=== PATIENT | male | born 1960 | race Caucasian/White ===

== ENCOUNTER → 2020-04-18 07:45 | Outpatient (CLI) | payer OTHER, SELFPAY ==
--- NOTE | ~2020-04-18 | US_ITS ---
EXAMINATION: US right upper quadrant EXAM DATE: 04/18/2020 08:09 INDICATION: Elevated liver enzymes TECHNIQUE: Multiple grayscale and Doppler images of the abdomen right upper quadrant were obtained (b y a technologist who performed the scan) and subsequently reviewed. Comparison is made to prior exami nation from 04/28/2019. FINDINGS: The pancreatic head and body are normal in appearance. The pancreatic tail is not visualized. The l iver has normal echogenicity and contour. There are no focal liver lesions identified. There is no evidence of intrahepatic biliary duct dilation. Portal venous flow was seen in the hepatopedal, nor mal direction and has normal Doppler waveform. No right-sided hydronephrosis. Common bile duct measures 4 mm, which is normal. The gallbladder wall is normal in thickness, with ex pected amount of distention. No sonographic evidence of pericholecystic fluid. There is no cholelit hiases. Technologist performing exam reports patient did not demonstrate sonographic Swanson's sign. Please note that this sign is less reliable in patients who have received pain medication. IMPRESSION: Hepatic steatosis. Reviewed, dictated and finalized at location A. ISTICAL METHODS PROFESSOR IMPRESSION: Hepatic steatosis.
== END ==
PROVIDERS: PCP Emergency Medicine; Visit Provider Emergency Medicine
DX: R74.8 Abnormal levels of other serum enzymes (principal); K76.0 Fatty (change of) liver, not elsewhere classified
CPT/HCPCS: 76705

== ENCOUNTER 2021-06-25 08:24 | Outpatient (CLI) | payer OTHER, SELFPAY ==
--- NOTE | ~2021-06-25 | US_ITS ---
EXAMINATION: US right upper quadrant EXAM DATE: 06/25/2021 08:54 INDICATION: Hepatic steatosis. TECHNIQUE: Multiple grayscale and Doppler images of the abdomen right upper quadrant were obtained (tee y a technologist who performed the scan) and subsequently reviewed. Comparison is made to prior exami nation from 04/18/2020. FINDINGS: The pancreatic head and body are normal in appearance. The pancreatic tail is not visualized. The l iver has normal echogenicity and contour. There are no focal liver lesions identified. There is no evidence of intrahepatic biliary duct dilation. Portal venous flow was seen in the hepatopedal, nor mal direction and has normal Doppler waveform. No right-sided hydronephrosis. Common bile duct measures 4 mm, which is normal. The gallbladder wall is normal in thickness, with ex pected amount of distention. No sonographic evidence of pericholecystic fluid. There is no cholelit hiases. Technologist performing exam reports patient did not demonstrate sonographic Swanson's sign. Please note that this sign is less reliable in patients who have received pain medication. IMPRESSION: 1. Resolution of previously seen hepatic steatosis. Reviewed, dictated and finalized at location G. H USHER
== END 2021-06-25 08:25 | disposition home or self-care (01) ==
LOC: ANHIMG 08:27
PROVIDERS: PCP Emergency Medicine; Visit Provider Family Medicine
DX: K76.0 Fatty (change of) liver, not elsewhere classified (principal)
CPT/HCPCS: 76705

== ENCOUNTER 2021-07-25 15:22 | Outpatient (CLI) | payer OTHER, SELFPAY ==
--- NOTE | ~2021-07-25 | US_ITS ---
EXAMINATION: US thyroid DATE: 07/25/2021 15:59 INDICATION: Elevated thyroid hormone levels TECHNIQUE: Multiple ultrasound images of the thyroid were obtained. COMPARISON: None. FINDINGS: The right thyroid lobe measures 4.8 x 1.9 x 1.5 cm. The left thyroid lobe measures 4.7 x 2.0 x 1.8 c m. Thyroid isthmus measures 2 mm in thickness. 1.1. Hypoechoic nodule which is wider than tall with s mooth margins (TI-RADS 4, moderately suspicious , FNA if >=1.5 cm, annual followup is >=1 cm). Adjace nt 4 mm coarse shadowing calcification along side but not appearing within the nodule. There is blanca l echotexture, echogenicity and vascular flow throughout the thyroid gland. IMPRESSION: 1. 1.1 cm TI RADS 4 left thyroid nodule for which annual follow-up ultrasound would be recommended. Reviewed, dictated and finalized at location A. ER IMPRESSION: 1. 1.1 cm TI RADS 4 left thyroid nodule for which annual follow-up ultrasound w ould be recommended.
== END 2021-07-25 15:23 | disposition home or self-care (01) ==
LOC: ANHIMG 15:25
PROVIDERS: PCP Emergency Medicine; Visit Provider Emergency Medicine
DX: R94.6 Abnormal results of thyroid function studies (principal)
CPT/HCPCS: 76536

== ENCOUNTER 2022-01-21 10:43 | Outpatient (CLI) | payer OTHER, SELFPAY ==
--- NOTE | ~2022-01-21 | XR_ITS ---
EXAMINATION: XR chest 2V 01/21/2022 10:57 INDICATION: Upper respiratory infection. Bronchitis. PROCEDURE: 2 view chest COMPARISON: No prior studies for comparison. FINDINGS: The lungs are clear. The cardiomediastinal silhouette is within normal limits. There are no pleural effusions. There is no pneumothorax suspected. IMPRESSION: 1: NO ACUTE CARDIOPULMONARY DISEASE. Reviewed, dictated and finalized at location B.
== END 2022-01-21 10:44 | disposition home or self-care (01) ==
PROVIDERS: PCP Emergency Medicine; Visit Provider Emergency Medicine
DX: J06.9 Acute upper respiratory infection, unspecified (principal); J40 Bronchitis, not specified as acute or chronic
CPT/HCPCS: 71046

== ENCOUNTER → 2022-04-16 13:44 | Outpatient (CLI) | payer BC, SELFPAY ==
--- NOTE | ~2022-04-16 | XR_ITS ---
EXAMINATION: XR chest 2V DATE: 04/16/2022 14:34 INDICATION: Cough. TECHNIQUE: Frontal and lateral views of the chest were obtained on 3 radiographs. COMPARISON: Chest 2 views 01/21/2022, CT abdomen and pelvis 11/18/2011 FINDINGS: The chest demonstrates clear lungs without pneumonia, pleural effusion, or pneumothorax. Th e heart size is normal. IMPRESSION: 1. No acute cardiopulmonary disease. Reviewed, dictated and finalized at location A. OGY SPECIALIST
== END ==
PROVIDERS: PCP Emergency Medicine; Visit Provider Emergency Medicine
DX: R05.9 Cough, unspecified (principal)
CPT/HCPCS: 71046

== ENCOUNTER 2023-01-20 15:29 | Outpatient (CLI) | payer OTHER, SELFPAY ==
[2023-01-20 15:49] LABS: Basophils Absolute Auto 0.1 K/mm3 (0.0-0.1); Basophils Percent Auto 0.8 % (0.2-1.2); Eosinophils Absolute Auto 0.4 K/mm3 (0-0.3); Eosinophils Percent Auto 4.7 % (0-4.4); Hematocrit 46.4 % (42.0-52.0); Hemoglobin 15.8 g/dL (14.0-18.0); Immature Granulocyte Absolute 0.03 K/mm3 (0.00-0.031); Immature Granulocyte Percent A 0.3 % (0-0.5); Lymphocytes Absolute Auto 1.81 K/mm3 (0.9-3.2); Lymphocytes Percent Auto 20.9 % (18.3-44.2); Mean Corpuscular HGB Conc 34.1 g/dl (32-36); Mean Corpuscular Volume 82.1 fl (80-100); Mean Platelet Volume 9.6 fl (7.4-10.4); Monocytes Absolute Auto 0.6 K/mm3 (0.1-0.6); Monocytes Percent Auto 6.6 % (2.6-8.5); Neutrophils Absolute Auto 5.8 K/mm3 (1.3-6.7); Neutrophils Percent Auto 66.7 % (45.5-73.1); Platelet Count Result 248 k/mm3 (150-375); Red Blood Count 5.65 M/mm3 (4.6-6.20); Red Cell Distribution Width 14.1 % (11.5-14.5); White Blood Count 8.7 K/mm3 (4.5-10.0)
[2023-01-20 16:40] LABS: Iron 111 ug/dL (49-181)
[2023-01-20 16:45] LABS: Alanine Aminotransferase 73 U/L (6-50); Albumin Level 4.4 g/dL (3.5-5.1); Alkaline Phosphatase 67 U/L (38-126); Anion Gap 7 mmol/L (8-16); Aspartate Amino Transferase 50 U/L (17-59); Bilirubin,Total 0.5 mg/dL (0.2-1.3); Blood Urea Nitrogen 13 mg/dL (9-20); Calcium 9.5 mg/dL (8.4-10.2); Carbon Dioxide 29 mmol/L (22-30); Chloride 104 mmol/L (98-107); Estimated Glomerular Filt Rate > 60; Glucose 106 mg/dL (65-110); Potassium 3.8 mmol/L (3.4-5.0); Sodium 140 mmol/L (137-145)
[2023-01-20 16:50] LABS: Percent Iron Saturation 29 % (20-50)
[2023-01-20 17:55] LABS: Folic Acid 13.2 ng/mL (2.76->20); Vitamin B12 > 1000.0 pg/mL (239-931)
== END 2023-01-20 15:30 | disposition home or self-care (01) ==
LOC: ANHLAB 15:34
PROVIDERS: PCP Emergency Medicine; Visit Provider Internal Medicine Hematology & Oncology
DX: D64.9 Anemia, unspecified (principal)
CPT/HCPCS: 36415; 80053; 82607; 82728; 82746; 83540; 83550; 85025

== ENCOUNTER 2023-07-14 10:21 | Outpatient (CLI) | payer OTHER, SELFPAY ==
[2023-07-14 10:37] LABS: Basophils Absolute Auto 0.1 K/mm3 (0.0-0.1); Basophils Percent Auto 0.5 % (0.2-1.2); Eosinophils Absolute Auto 0.5 K/mm3 (0-0.3); Hematocrit 46.6 % (42.0-52.0); Hemoglobin 15.3 g/dL (14.0-18.0); Immature Granulocyte Absolute 0.05 K/mm3 (0.00-0.031); Immature Granulocyte Percent A 0.5 % (0-0.5); Lymphocytes Absolute Auto 2.19 K/mm3 (0.9-3.2); Mean Corpuscular HGB Conc 32.8 g/dl (32-36); Mean Corpuscular Volume 82.2 fl (80-100); Mean Platelet Volume 9.8 fl (7.4-10.4); Monocytes Absolute Auto 0.9 K/mm3 (0.1-0.6); Monocytes Percent Auto 8.7 % (2.6-8.5); Neutrophils Absolute Auto 6.3 K/mm3 (1.3-6.7); Neutrophils Percent Auto 63.3 % (45.5-73.1); Platelet Count Result 241 k/mm3 (150-375); Red Blood Count 5.67 M/mm3 (4.6-6.20); Red Cell Distribution Width 14.2 % (11.5-14.5); White Blood Count 9.9 K/mm3 (4.5-10.0)
[2023-07-14 16:31] LABS: Iron 180 ug/dL (49-181)
[2023-07-14 16:33] LABS: Anion Gap 8 mmol/L (8-16); Blood Urea Nitrogen 12 mg/dL (9-20); Calcium 9.5 mg/dL (8.4-10.2); Carbon Dioxide 28 mmol/L (22-30); Chloride 102 mmol/L (98-107); Estimated Glomerular Filt Rate > 60; Glucose 86 mg/dL (65-110); Potassium 4.2 mmol/L (3.4-5.0); Sodium 138 mmol/L (137-145)
[2023-07-14 16:45] LABS: Percent Iron Saturation 56 % (20-50)
[2023-07-14 17:39] LABS: Folic Acid 10.2 ng/mL (2.76->20)
== END 2023-07-14 10:22 | disposition home or self-care (01) ==
LOC: ANHLAB 10:23
PROVIDERS: PCP Emergency Medicine; Visit Provider Internal Medicine Hematology & Oncology
DX: D64.9 Anemia, unspecified (principal)
CPT/HCPCS: 36415; 80048; 82607; 82728; 82746; 83540; 83550; 85025

== ENCOUNTER 2023-07-23 11:12 | Outpatient (CLI) | payer OTHER, SELFPAY ==
--- NOTE | ~2023-07-23 | XR_ITS ---
Clinical Indication: Cough PA and lateral views of the chest: Comparison: 04/16/2022 Findings: The lungs are clear, without evidence of focal consolidation or pleural effusion. Cardiome diastinal silhouette is within normal limits. Bones and soft tissues are unremarkable. Impression: Normal chest. Reviewed, dictated and finalized at [facility]. RANCE DIVER Impression: Normal chest.
== END 2023-07-23 11:13 | disposition home or self-care (01) ==
PROVIDERS: PCP Emergency Medicine; Visit Provider Emergency Medicine
DX: R05.9 Cough, unspecified (principal)
CPT/HCPCS: 71046

== ENCOUNTER 2023-10-14 09:33 | Outpatient (CLI) | payer OTHER, SELFPAY ==
--- NOTE | ~2023-10-14 | US_ITS ---
Limited Abdominal Sonogram: Real-time sonographic imaging of the right upper quadrant was performed. Clinical History: Abnormal liver enzymes Findings: The liver appears echogenic, with no evidence of mass lesion or bile duct dilatation. Main portal vein demonstrates normal direction of flow. The gallbladder is well distended, and appears no rmal with no evidence of gallstone or wall thickening. The common bile duct measures 3 mm. The visua lized pancreas, aorta, and IVC are unremarkable. Impression: Diffuse fatty infiltration of liver. Reviewed, dictated and finalized at location M. Impression: Diffuse fatty infiltration of liver.
== END 2023-10-14 09:34 | disposition home or self-care (01) ==
LOC: ANHIMG 09:34
PROVIDERS: PCP Emergency Medicine; Visit Provider Emergency Medicine
DX: K76.0 Fatty (change of) liver, not elsewhere classified (principal)
CPT/HCPCS: 76705

== ENCOUNTER 2024-08-02 14:40 | Outpatient (CLI) | payer OTHER, SELFPAY ==
[2024-08-02 14:58] LABS: Basophils Absolute Auto 0.1 K/mm3 (0.0-0.1); Basophils Percent Auto 1.2 % (0.2-1.2); Eosinophils Absolute Auto 0.7 K/mm3 (0-0.3); Eosinophils Percent Auto 6.7 % (0-4.4); Hematocrit 46.7 % (42.0-52.0); Hemoglobin 15.7 g/dL (14.0-18.0); Immature Granulocyte Absolute 0.03 K/mm3 (0.00-0.031); Immature Granulocyte Percent A 0.3 % (0-0.5); Lymphocytes Absolute Auto 2.27 K/mm3 (0.9-3.2); Lymphocytes Percent Auto 21.5 % (18.3-44.2); Mean Corpuscular HGB Conc 33.6 g/dl (32-36); Mean Corpuscular Hemoglobin 27.3 pg (26-34); Mean Corpuscular Volume 81.1 fl (80-100); Mean Platelet Volume 9.8 fl (7.4-10.4); Monocytes Absolute Auto 0.8 K/mm3 (0.1-0.6); Neutrophils Absolute Auto 6.6 K/mm3 (1.3-6.7); Neutrophils Percent Auto 62.3 % (45.5-73.1); Platelet Count Result 267 k/mm3 (150-375); Red Blood Count 5.76 M/mm3 (4.6-6.20); Red Cell Distribution Width 14.6 % (11.5-14.5); White Blood Count 10.6 K/mm3 (4.5-10.0)
[2024-08-02 15:49] LABS: Iron 94 ug/dL (49-181); Percent Iron Saturation 28 % (20-50)
[2024-08-02 16:38] LABS: Folic Acid 5.5 ng/mL (2.76->20)
--- OUTSIDE RECORDS SUMMARY | 2024-08-02 17:04 | XMS_ITS | Clinical Summary ---
Author Organization [facility] Address [address] [place] [address] Care Team Providers Care Agency Manager Name Role Phone Robert Gray MD Primary Care Provider [phone] Source Comments [facility],non-[facility] Affiliates and Associated Physician Practices is amultiple site organization consisting of ambulatory clinics and hospital sitesin [place], [place], [place] and [place]. This disclosure is being madepursuant to the Care Everywhere program and may not contain all information available regarding this patient. Last updated [email or web address] [email or web address] Allergies Active Allergy Reactions Criticality Noted Date Comments Hmg-Coa-R Inhibitors Other 10/30/2021 Semaglutide Other High 12/13/2021 Medications * Be aware that medications may not be up to date on this document. Alwaysverify current medications with the patient. Medication Sig Dispensed Refills Start Date End Date Status fluticasone propionate (FLONASE) 50 MCG/ACT nasal spray [place] 2 (two) sprays into each nostril once daily 10/26/2021 Active atenolol (TENORMIN) 50 MG tablet Take 1 (one) tablet by mouth once daily 09/12/2021 Active fexofenadine (RAFAEL) 180 MG tablet every 24 hours Active omeprazole EC (PRILOSEC OTC) 20 MG tablet 12/20/2020 Active triamcinolone acetonide (KENALOG) 0.5 % cream triamcinolone acetonide 0.5 % topical cream Active aspirin EC (Ecotrin) 81 MG tablet Take 1 (one) tablet by mouth once daily Active Magnesium 400 MG Active Jardiance 10 MG tablet Take 1 (one) tablet by mouth once daily 12/18/2021 Active evolocumab (Repatha SureClick) 140 MG/ML auto-injector 09/26/2022 Activ e icosapent ethyl (Vascepa) 1 g capsule Vascepa 1 gram capsule 12/18/2022 Active ferrous sulfate 325 (65 FE) MG tablet Take 1 (one) tablet by mouth once daily Active Active Problems Problem Noted Date Diagnosed Date Pulmonary hypertension 12/18/2022 Iron deficiency 12/18/2022 01/28/2023 Rheumatic tricuspid insufficiency 02/15/2022 01/28/2023 Thyroid nodule 10/30/2021 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 Impotence 10/30/2021 Allergic rhinitis 10/30/2021 Chronic obstructive lung disease 10/30/2021 Eczema 10/30/2021 Essential hypertension 10/30/2021 Elevated LFTs 12/15/2019 Aortic atherosclerosis 10/21/2017 Arteriosclerosis of coronary artery 10/21/2017 Overview (10/30/2021): mild carotid plqe Hemorrhoids 05/05/2017 B12 deficiency 12/08/2015 Sleep apnea, unspecified 12/07/2015 Vitamin D deficiency 11/25/2013 Hyperlipidemia 08/26/2013 Obesity 08/26/2013 Other ill-defined heart diseases 08/26/2013 Immunizations Name Administration Dates Next Due COVID BRITTANY PRIMARY 18+YR 08/11/2021 Covid Pfizer primary monoval ent 12+ yr 0.3mL Purple cap 10/05/2021,04/09/2021 Family History Medical History Relation Name Comments Thyroid Disease Cousin THYROID SURG LALY Thyroid Disease Maternal Aunt POSSIBLE TH YROID CANCER Relation Name Status Comments Cousin Alive Maternal Aunt Alive Social History Tobacco Use Types Packs/Day Years Used Date Smoking Tobacco: Never Smokeless Tobacco: Never Tobacco Cessation:Counseling Given: No Alcohol Use Standard Drinks/Week Comments Yes 0 (1 standard drink = 0.6 oz pur e alcohol) 6pcks off and on for 40 years Sex and Gender Information Value Date Recorded Sex Assigned at Not on file Gender Identity Not on file Sexual Orientation Not on file Last Filed Vital Signs Vital Sign Reading Time Taken Comments Blood Pressure 132/78 01/28/2023 11:42 AM CDT Pulse 62 01/28/2023 11:42 AM CDT Temperature 35.1 C (95.1 F) 01/29/2022 11:05 AM CDT Respiratory Rate 18 01/28/2023 11:4 2 AM CDT Oxygen Saturation 94% 01/28/2023 11: 42 AM CDT Inhaled Oxygen Concentration - - Weight 120.2 kg (264 lb 14.4 oz) 2022 11:42 AM CDT Height 185.4 cm (6' 1 ) 01/28/2023 11:4 2 AM CDT Body Mass Index 34.95 01/28/2023 11:42 AM CDT Plan of Treatment Health Maintenance Due Date Last Done Comments COLOGUARD (AGES 45-75) - COL ON CA SCREENING 1961 COLON MONITORING 1961 COLONOSCOPY - COLON CA SCREENING 1961 CT COLONOGRAPHY - COLON CA SCREENING 1961 Colorectal Cancer Screening 1961 FIT - COLON CA SCREENING 1961 FLEX SIG - COLON CA SCREENING 1961 HIV SCREENING 1976 HEPATITIS C SCREENING 04/03/1979 DTAP/TDAP/TD VACCINES (1 - Tdap) 1980 PNEUMOCOCCAL VACCINE 50+ (1 of 2 - PCV) 1980 PNEUMOCOCCAL VACCINE (1 of 2 - PCV) 1980 ZOSTER VACCINE (1 of 2) 2011 Respiratory Syncytial Virus (RSV) Vaccine Pt: or over 60 yrs (1 - Risk 60-74 years 1-dose series) 2021 SCREENING FOR DIABETES 10/30/2021 COVID-19 VACCINE (4 - 2023-2 5 season) 2024 10/05/2021, 08/11/2021, 04/09/2021 INFLUENZA VACCINE (#1) 2024 DEPRESSION SCREENING 06/09/2024 HEPATITIS B VACCINE Aged Out No longe r eligible based on patient's age to complete this topic HIB VACCINE Aged Out No longer eligi ble based on patient's age to complete this topic HPV VACCINE Aged Out No longer eligi ble based on patient's age to complete this topic MENINGOCOCCAL (Group B) VACCINE Aged Out No longer eligible b ased on patient's age to complete this topic MENINGOCOCCAL VACCINE Aged Out No maggy crispin eligible based on patient's age to complete this topic Care Teams Agency Manager Relationship Specialty Start Date End Date Robert Gray MD [address] [place] [id number] PCP - General 08/08/21
--- OUTSIDE RECORDS SUMMARY | 2024-08-02 17:04 | XMS_ITS | Encounter Summary ---
Author Organization [facility] [employer] [facility] Address [address] [place] [address] Care Team Providers Care Foreign Clerk Name Role Phone Robert Gray MD Primary Care Provider [phone] Encounter Details Date Type Department Care Team (Late Contact Info) Description 08/02/2024 Orders Only [facility] Oncology and Hematology [address] [place] [address] Natanael Ennis MD [facility] [address] [place] [phone] Chronic anemia (Primary Dx) Social History Tobacco Use Types Packs/Day Years Used Date Smoking Tobacco: Former Cigarettes Alcohol Use Standard Drinks/Week Comments Yes 0 (1 standard drink = 0.6 oz pur e alcohol) rare Sex and Gender Information Value Date Recorded Sex Assigned at Not on file Legal Sex Male 10:54 AM CDT Gender Identity Not on file Sexual Orientation Not on file documented as of this encounter Plan of Treatment Upcoming Encounters Date Type Department Care Team (Late Contact Info) Description 08/03/2024 3:30 PM IMPORT/EXPORT ADMINISTRATOR Office Visit [facility] Oncology and Hematology - [address] [place] [address] Natanael Ennis MD [facility] [address] [address] [place] [phone] Scheduled Orders Name Type Priority Associated Diagnoses Orde r Schedule CBC WITH DIFFERENTIAL Lab Routine Chronic anemia Expected: 08/02/2024, Expires: 08/02/2025 IRON, TIBC, AND PERCENT SATURATION Lab Routine Chronic anemia Expected: 08/02/2024, Expires: 08/02/2025 FERRITIN Lab Routine Chronic anemia Expected: 08/02/2024, Expires: 08/02/2025 VITAMIN B12 AND FOLATE Lab Routine Chronic anemia Expected: 08/02/2024, Expires: 08/02/2025 documented as of this encounter Visit Diagnoses Diagnosis Chronic anemia- Primary Anemia, unspecified documented in this encounter Care Teams Foreign Clerk Relationship Specialty Start Date End Date Robert Gray MD [address] [place] [phone] PCP - General Family Practice 07/31/23 documented as of this encounter
--- OUTSIDE RECORDS SUMMARY | 2024-08-02 17:04 | XMS_ITS | Clinical Summary ---
Author Organization [facility] Address [address] [place] [address] Care Team Providers Care Cutter Operator Brick Name Role Phone Robert Gray MD Primary Care Provider [phone] Allergies Active Allergy Reactions Criticality Noted Date Comments Semaglutide (Weight Loss) Other (See Comments) 01/20/2023 Sulfur taste Dozrxfj-Duj-Uid Reductase Inhibitors Muscle Pain Low 01/20/2023 Medications atenoloL (TENORMIN) 50 mg tablet Take 50 mg by mouth daily. 2 Active fexofenadine (RAFAEL) 180 mg tablet Take 180 mg by mouth daily. Active omeprazole magnesium (PriLOSEC) 20 mg Tablet, Delayed Release (E.C.) Take 20 mg by mouth. 1 Active fluticasone propionate (FLONASE) 50 mcg/spray Lindsay, Suspension nasal inhaler Administer 2 Sprays in each nostril daily. 2 Active evolocumab (Repatha SureClick) 140 mg/mL Pen Injector Apply to affected area one time only. 3 Active cyanocobalamin (Vitamin B-12) 5,000 mcg Tablet, Sublingual Place 2,500 mcg under tongue daily. Active empagliflozin (Jardiance) 10 mg tablet Take 10 mg by mouth daily in the morning. Active magnesium oxide (MAG-OX) 400 mg (241.3 mg magnesium) tablet Take 400 mg by mouth daily. Active ferrous sulfate 325 mg (65 mg iron) tablet Take 325 mg by mouth daily. Active aspirin (ECOTRIN EC) 81 mg Tablet, Delayed Release (E.C.) Take 81 mg by mouth daily. Active atenoloL (TENORMIN) 50 mg tablet Take 50 mg by mouth daily. Active amLODIPine (NORVASC) 5 mg tablet Take 5 mg by mouth daily. Active Active Problems No known active problems Encounters Date Type Department Care Team Description 08/02/2024 Orders Only [facility] Oncology and Hematology [address] [place] [address] Natanael Ennis MD Chronic anemia (Primary Dx) from Last 3 Months Family History Relation Name Status Comments Brother Alive Daughter Alive Father Mother Alive Sister Alive Son Alive Social History Tobacco Use Types Packs/Day Years Used Date Smoking Tobacco: Former Cigarettes Tobacco Cessation:Counseling Given: Not Answered Alcohol Use Standard Drinks/Week Comments Yes 0 (1 standard drink = 0.6 oz pur e alcohol) rare Sex and Gender Information Value Date Recorded Sex Assigned at Not on file Legal Sex Male 10:54 AM CDT Gender Identity Not on file Sexual Orientation Not on file Last Filed Vital Signs Vital Sign Reading Time Taken Comments Blood Pressure 136/88 07/31/2023 11:19 AM PROJECT ASST Pulse 62 07/31/2023 11:17 AM PROJECT ASST Temperature 36.1 C (96.9 F) 07/31/2023 11:17 AM PROJECT ASST Respiratory Rate 16 07/31/2023 11:17 AM PROJECT ASST Oxygen Saturation 96% 07/31/2023 11:17 AM PROJECT ASST Inhaled Oxygen Concentration - - Weight 123.4 kg (272 lb) 07/31/2023 11:17 AM PROJECT ASST Height 185.4 cm (6' 1 ) 01/20/2023 2:56 PM CDT Body Mass Index 35.89 01/20/2023 2:56 PM CDT Plan of Treatment Upcoming Encounters Date Type Department Care Team (Late st Contact Info) Description 08/03/2024 3:30 PM PROJECT ASST Office Visit [facility] Oncology and Hematology [address] [place] [address] Natanael Ennis MD [address] [facility] [address] [place] [address] Health Maintenance Due Date Last Done Comments DTAP/TDAP/TD VACCINES (1 - Tdap) 1980 COLORECTAL SCREENING 2006 Colorectal Cancer Screening 2006 FIT-DNA Q 3 years 2006 FIT/FOBT Q 1 year 2006 Flex Sig/CT Colonography Q 5 years 2006 ZOSTER VACCINE (1 of 2) 2011 RSV VACCINE (60+ or ) (1 - Risk 60-74 years 1-dose series) 2021 INFLUENZA VACCINE (#1) 2024 Preventative Visit- Commercial 06/09/2024 Insurance zhiwo OPEN ACCESS HMO [facility] [id number] Care Teams Cutter Operator Brick Relationship Specialty Start Date End Date Robert Gray MD [address] [place] [phone] PCP - General Family Practice 07/31/23
--- OUTSIDE RECORDS SUMMARY | 2024-08-02 17:04 | XMS_ITS | CONTINUITY OF CARE DOCUMENT ---
Author Name melva frye Address Unknown Organization [facility] Address [address] [place] [address] Phone [phone] Care Team Providers Care Nurse Unit Manager Name Role Phone Donovan Stafford MD Unavailable [phone] MOSES STEWART MD Unavailable [phone] MOSES STEWART MD Unavailable [phone] PROBLEMS Condition Status Date Provider Notes Tricuspid regurgitation, mild active Donovan Stafford MD PREDIABETES active Donovan Stafford MD Granulomatous lung disease active Donovan hammer MD Aortic atherosclerosis active Donovan Stafford MD COPD;NEG CXR 14 active Donovan Stafford MD HTN ESSENTIAL;neg duplex active Donovan solis MD rpm not covered Hyperlipidemia;NEG CRP and lpa active Donovan Stafford MD Tobacco use, quit active Donovan Stafford MD OBESITY; active Donovan Stafford MD FAMILY HISTORY OF HEART DISEASE active Donovan Stafford MD r/o ISCHEMIA;NEG NUC 14, WMA 14, not seen 15, neg routine stress 15, completed - Donovan Stafford MD VITAMIN D DEFICIENCY; completed - Donovan Stafford MD Diastolic CHF active Donovan Stafford MD Screening active Donovan Stafford MD \ SLEEP APNEA;uars active Donovan Stafford MD B12 deficiency active Donovan Stafford MD CAD active Donovan Stafford MD mild car otid plqe Elevated LFT's active Donovan Stafford MD Exposure to SARS-associated coronavirus;neg igg and had vaccine active Lola Mathews NP Thyroid nodule active Donovan Stafford MD neg tsh Bradycardia;due to rx active Donovan Stafford MD IRON DEFICIENCY active Donovan Stafford MD Hypertriglyceridemia active Donovan Gaming Pulmonary hypertension completed 2 - Donovan Stafford MD Aortic aneurysm active Donovan Stafford MD abd doinal ENCOUNTERS Date Type Provider Location Encounter Diag nosis 9 - 9 In-person encounter Office Visit Donovan Stafford MD [facility] Pulmonary hypertensionAortic aneurysm 6 - 6 In-person encounter Office Visit Donovan Stafford MD [place] [facility] COPD;NEG CXR 14HTN ESSENTIAL;neg duplexScreening 5 - 5 In-person encounter Office Visit Hua Yi MD [place] [facility] 2 - 2 In-person encounter Office Visit Donovan Stafford MD [place] [facility] HTN ESSENTIAL;neg duplexVITAMIN D DEFICIENCY;Diastolic CHFBradycardia;due to rxIRON DEFICIENCYHypertriglyceridemia 7 - 7 In-person encounter Office Visit Donovan Stafford MD [facility] B12 deficiencyThyroid nodule 4 - 4 In-person encounter Office Visit Donovan Stafford MD [place] [facility] Exposure to SARS-associated coronavirus;neg igg and had vaccine 8 - 8 In-person encounter Office Visit Donovan Stafford MD [place] [facility] Elevated LFT'sExposure to SARS-associated coronavirus;neg igg and had vaccine 0 - 0 In-person encounter Office Visit Donovan Stafford MD [place] [facility] [facility] 1 - 1 In-person encounter Office Visit Donovan Stafford MD [place] [facility] CAD 5 - 5 In-person encounter Office Visit Donovan Stafford MD [place] [facility] 5 - 5 In-person encounter Office Visit Donovan Stafford MD [place] [facility] COPD;NEG CXR 14Tobacco use, quitScreening 6 - 6 In-person encounter Office Visit Donovan Stafford MD [place] [facility] Hyperlipidemia;NEG CRP and lpaOBESITY;SLEEP APNEA;uars 0 - 0 In-person encounter Office Visit Donovan Stafford MD [place] [facility] HTN ESSENTIAL;neg duplexr/o ISCHEMIA;NEG NUC 14, WMA 14, not seen 15, neg routine stress 15,Diastolic CHFScreeningSLEEP APNEA;uars 8 - 8 In-person encounter Office Visit Donovan Stafford MD [place] [facility] HTN ESSENTIAL;neg duplexOBESITY;VITAMIN D DEFICIENCY;Diastolic CHF 9 - 9 In-person encounter Office Visit Donovan Stafford MD [place] [facility] Hyperlipidemia;NEG CRP and lpaOBESITY;r/o ISCHEMIA;NEG NUC 14, WMA 14, not seen 15, neg routine stress 15,VITAMIN D DEFICIENCY; 0 - 0 In-person encounter Office Visit Donovan Stafford MD [place] [facility] COPD;NEG CXR 14HTN ESSENTIAL;neg duplexHyperlipidemia;NEG CRP and lpaTobacco use, quitOBESITY;FAMILY HISTORY OF HEART DISEASEr/o ISCHEMIA;NEG NUC 14, WMA 14, not seen 15, neg routine stress 15, VITAL SIGNS Date Observation Value Provider Body Mass Index (Ratio) 32.06 kg/m2 Cleo Stafford MD blood pressure, diastolic 85 mm[Hg] Ulises Fisher blood pressure, systolic 127 mm[Hg] Ilana Fisher pulse rate 76 /min Angelita fajardo oxygen saturation, oximetry 97 % Angelita Fisher blood pressure, cuff size regular Br cindy Fisher weight E&M 243 [lb_av] Angelita Nicole s height E&M 73 [in_i] Angelita fajardo Body Mass Index (Ratio) 36.15 kg/m2 Cleo Stafford MD blood pressure, diastolic -1 mm[Hg] Li nkLogic blood pressure, systolic 123 mm[Hg] Shannan kLogic blood pressure, diastolic 71 mm[Hg] Ja rret blood pressure, systolic 123 mm[Hg] Jar ret pulse rate 65 /min Jimenez y blood pressure, cuff size regular Ja rret oxygen saturation, oximetry 97 % Jimenez respiratory rate E&M 16 /min Jimenez weight E&M 274 [lb_av] Jimenez y height E&M 73 [in_i] Jimenez y blood pressure, saleem tolic, second observation 78 mm[Hg] Brenna Knight blood pressure, syst olic, second observation 126 mm[Hg] Brenna Chatsworth blood pressure, diastolic, baseline 88 mm [Hg] Brenna Chatsworth blood pressure, systolic, baseline 138 mm [Hg] Brenna Chatsworth height E&M 73 [in_i] Brenna Knight height in centimeters E&M 185.42 cm Fa luz maria Knight Body Mass Index (Ratio) 35.75 kg/m2 Barrie Yi MD blood pressure, cuff size regular Ja rret blood pressure, diastolic 86 mm[Hg] Ja rret blood pressure, systolic 150 mm[Hg] Jar ret pulse rate 77 /min Jimenez respiratory rate E&M 12 /min Jimenez oxygen saturation, oximetry 94 % weight E&M 271 [lb_av] Jimenez height E&M 73 [in_i] Jimenez y Body Mass Index (Ratio) 34.83 kg/m2 Cleo Stafford MD blood pressure, diastolic 79 mm[Hg] [employer] blood pressure, systolic 134 mm[Hg] Shannan blood pressure, cuff size regular Ja blood pressure, diastolic 79 mm[Hg] Ja [facility] blood pressure, systolic 134 mm[Hg] [facility] oxygen saturation, oximetry 97 % Jimenez respiratory rate E&M 12 /min Jimenez pulse rate 70 /min Jimenez weight E&M 264 [lb_av] Jimenez y height E&M 73 [in_i] Jimenez y Body Mass Index (Ratio) 34.11 kg/m2 Cleo Stafford MD blood pressure, diastolic 94 mm[Hg] Li nkLogorquidea blood pressure, systolic 138 mm[Hg] Shannan ogic blood pressure, cuff size large Ta jem Van blood pressure, diastolic 94 mm[Hg] Ta jem Van blood pressure, systolic 138 mm[Hg] Mallory allyssa Van oxygen saturation, oximetry 96 % Silva Van respiratory rate E&M 16 /min Silva Van pulse rate 66 /min Silva Van weight E&M 258.6 [lb_av] Silva Van height E&M 73 [in_i] [facility] Body Mass Index (Ratio) 32.72 kg/m2 Cleo Stafford MD blood pressure, diastolic 90 mm[Hg] Ma ha O'Blas blood pressure, systolic 136 mm[Hg] [facility] O'Blas oxygen saturation, oximetry 97 % Siria O'Blas respiratory rate E&M 16 /min Siria O'Blas pulse rate 70 /min Siria O'Blas blood pressure, resting Yes [facility] O'Blas weight E&M 248 [lb_av] [facility] O'Blas height E&M 73 [in_i] Siria O'Blas Body Mass Index (Ratio) 33.38 kg/m2 Cleo Stafford MD blood pressure, diastolic 81 mm[Hg] To nsha Piña blood pressure, systolic 143 mm[Hg] Ton sha Piña oxygen saturation, oximetry 97 % Tonsha Piña respiratory rate E&M 16 /min Tonsha Piña pulse rate 68 /min Tonsha Piña temperature site temporal Tonsha Piña temperature E&M 95.6 [degF] Tonsha Piña weight E&M 253 [lb_av] Tonsha Piña height E&M 73 [in_i] Tonsha Piña Body Mass Index (Ratio) 32.98 kg/m2 Cleo Stafford MD blood pressure, cuff size regular Cy charlotte Carrera blood pressure, diastolic 70 mm[Hg] Cy charlotte Carrera blood pressure, systolic 120 mm[Hg] Elida briseyda Carrera oxygen saturation, oximetry 98 % Elvia Carrera respiratory rate E&M 16 /min Elvia Carrera pulse rate 66 /min Elvia mckeon weight E&M 250 [lb_av] Elvia Lares l height E&M 73 [in_i] Elvia Lares l Body Mass Index (Ratio) 34.56 kg/m2 Cleo Stafford MD blood pressure, diastolic 79 mm[Hg] Karuna Talamantes blood pressure, systolic 130 mm[Hg] Isabelle Talamantes oxygen saturation, oximetry 97 % Wily Talamantes respiratory rate E&M 18 /min Diogo Talamantes pulse rate 62 /min Wily Madison nson weight E&M 262.0 [lb_av] Wily frankon height E&M 73 [in_i] Wily Madison ria Body Mass Index (Ratio) 34.43 kg/m2 Cleo Stafford MD blood pressure, diastolic 82 mm[Hg] Karuna Talamantes blood pressure, systolic 139 mm[Hg] Isabelle Talamantes oxygen saturation, oximetry 98 % Wily Talamantes respiratory rate E&M 18 /min Diogo Talamantes pulse rate 68 /min Wily mauor weight E&M 261.0 [lb_av] Wily shrestha height E&M 73 [in_i] Wily vasques Body Mass Index (Ratio) 34.69 kg/m2 Cleo Stafford MD oxygen saturation, oximetry 96 % Sandra Agrawal respiratory rate E&M 16 /min Sandra Nghia pulse rate 69 /min Sandra Paxinos blood pressure, cuff size regular Kr isty Nghia blood pressure, diastolic 74 mm[Hg] Doni isty Nghia blood pressure, systolic 118 mm[Hg] Norma Agrawal weight E&M 263 [lb_av] Sandra Nghia height E&M 73 [in_i] Sandra Agrawal Body Mass Index (Ratio) 32.19 kg/m2 Cleo Stafford MD blood pressure, resting Yes Carmen Talamantes blood pressure, diastolic 79 mm[Hg] Karuna Talamantes blood pressure, systolic 120 mm[Hg] Isabelle Talamantes oxygen saturation, oximetry 97 % Wily Talamantes respiratory rate E&M 18 /min Diogo Talamantes pulse rate 61 /min Wily mauro weight E&M 244 [lb_av] Wily mauro height E&M 73 [in_i] Wily mauro blood pressure, diastolic 92 mm[Hg] Ke isidroi Eri blood pressure, systolic 122 mm[Hg] Ker ri Eri pulse rate 65 /min Birgit Kapil er oxygen saturation, oximetry 98 % Birgit Eri respiratory rate E&M 16 /min Birgit Jose myers Body Mass Index (Ratio) 32.32 kg/m2 Benavides i Eri weight E&M 245 [lb_av] Birgit Kapil lder blood pressure, diastolic 80 mm[Hg] Be tsy Hernandez blood pressure, systolic 132 mm[Hg] Bet sy Hernandez Body Mass Index (Ratio) 30.47 kg/m2 Anea daksha Albert blood pressure, diastolic 60 mm[Hg] An eatris Brown blood pressure, systolic 90 mm[Hg] Ane atris Brown pulse rate 62 /min Aneatris Brown oxygen saturation, oximetry 96 % Aneatris Brown respiratory rate E&M 17 /min Aneatri s Brown weight E&M 231 [lb_av] Aneatrjordan Brown blood pressure, diastolic 86 mm[Hg] Be love Hernandez blood pressure, systolic 130 mm[Hg] Bet janis Hernandez blood pressure, diastolic, left arm 79 mm [Hg] Reza Headley KILLIAN blood pressure, systolic, left arm 126 mm [Hg] Reza Headley KILLIAN blood pressure, diastolic, right arm 82 m m[Hg] Reza Headley KILLIAN blood pressure, systolic, right arm 124 m m[Hg] Reza Headley KILLIAN blood pressure, diastolic 79 mm[Hg] Christopher barker Headley KILLIAN blood pressure, systolic 126 mm[Hg] Reza Headley KILLIAN pulse rate 60 /min Reza Headley KILLIAN oxygen saturation, oximetry 98 % Reza Headley KILLIAN respiratory rate E&M 18 /min Reza delgado RN Body Mass Index (Ratio) 33.10 kg/m2 Reza Headley KILLIAN weight E&M 250 [lb_av] Reza Headley KILLIAN blood pressure, diastolic 79 mm[Hg] Christopher mj Headley KILLIAN blood pressure, systolic 129 mm[Hg] Reza Headley KILLIAN pulse rate 66 /min Reza Headley KILLIAN oxygen saturation, oximetry 98 % Reza Headley respiratory rate E&M 16 /min Reza Molina [facility] RN Body Mass Index (Ratio) 34.82 kg/m2 Reza Headley KILLIAN weight E&M 263 [lb_av] Reza Headley KILLIAN height E&M 73 [in_i] Reza Headley KILLIAN ALLERGIES Allergy Name Onset Date Reaction Criticality Status OZEMPIC (0.25 OR 0.5 MG/DOSE) High C riticality active PRAVASTATIN SODIUM muslce aches Low Criticality active ZOCOR 5 mg muslce Low Criticality active RESULTS Date Observation Value Provider Reference Range Interpretation Location 01/09 thyroid stimulating hormone, serum 2.56 u[IU]/mL Link[facility] 0.40-4.50 Normal [place] [address] Pavithra [place] [id number] [facility] Vo 01/09 thyroxine, serum, free 1.0 ng/dL [facility] 0.8-1.8 Normal [place] [address] Pavithra MOSER [id number] [employer] [email or web address] Vo 01/09 triiodothyronine (T3), serum 128 ng/dL [facility] 76-181 Normal [place] [address] Pavith[place] [id number] [facility] 12/25 C-reactive protein, by highly sensitive test 1.9 mg/L [facility] Normal 12/25 calcium, serum 9.7 mg/dL [facility] 8.6-10.3 Normal 12/25 carbon dioxide, venous blood 30 mmol/L [facility] 20-32 Normal 12/25 chloride, serum 104 mmol/L [facility] 98-110 Normal 12/25 potassium, serum 4.6 mmol/L [facility] 3.5-5.3 Normal 12/25 sodium, serum 135 mmol/L [facility] 135-146 Normal 12/25 urea nitrogen/creatinin e ratio, serum NOT APPLICABLE (calc) [facility] 6-22 12/25 creatinine, serum 1.11 mg/dL [facility] 0.70-1.35 Normal 12/25 urea nitrogen, blood 17 mg/dL [facility] 7-25 Normal 12/25 blood glucose, random 103 mg/dL [facility] 65-99 High 12/25 NT-pro BNP <36 [facility] <125 Normal 01/10 cholesterol, non-HDL, total 51 MG/DL (CALC) [facility]ic <130 Normal 01/10 cholesterol/HDL ratio, serum, percent 2.5 (calc) LinkLogic <5.0 Normal 01/10 LDL cholesterol, serum 28 MG/DL (CALC) [facility]Logic Normal 01/10 triglyceride, serum, fasting 149 mg/dL [facility] <150 Normal 01/10 HDL cholesterol, serum 34 mg/dL Link[facility] > OR = 40 Low 01/10 cholesterol, serum 85 mg/dL [facility] <200 Normal 12/27 hepatitis B core IgG, serum Negative [facility] Negative 12/27 HBsAg - Confirmation Negative [facility] Negative 12/27 hepatitis A antibody, IgM Negative [facility] Negative 12/27 alanine aminotransferase (SGPT), serum 37 1/L [facility] 0-44 12/27 aspartate aminotransferase (SGOT), serum 30 1/L [facility] 0-40 12/27 alkaline phosphatase, serum 80 1/L [facility] 39-117 12/27 bilirubin, serum, total 0.4 mg/dL [facility] 0.0-1.2 12/27 albumin/globulin ratio, serum 1.8 [facility] 1.2-2.2 12/27 globulin, serum 2.3 [facility] 1.5-4.5 12/27 albumin, serum 4.2 g/dL [facility] 3.8-4.9 12/27 protein, total, serum 6.5 g/dL [facility] 6.0-8.5 12/27 calcium, serum 9.3 mg/dL [facility] 8.7-10.2 12/27 carbon dioxide, venous blood 25 mmol/L [facility] 20-29 12/27 chloride, serum 105 mmol/L [facility] 96-106 12/27 potassium, serum 4.3 mmol/L [facility] 3.5-5.2 12/27 sodium, serum 141 mmol/L [facility] 352-864 8624/0 7/21 urea nitrogen/creatinin e ratio, serum 11 [facility] 9-20 12/27 eGFR if 89 mL/min/{1.7 3_m2} [facility] >59 12/27 eGFR if not 77 mL/min/{1.7 3_m2} [facility] >59 12/27 creatinine, serum 1.06 mg/dL [facility] 0.76-1.27 12/27 urea nitrogen, blood 12 mg/dL [facility] 6-24 12/27 blood glucose, random 94 mg[facility] 12/07 vitamin b12, serum 389.8 pg/mL LinkLog 211.0 - 946.0 12/07 pro brain natriuretic peptide 24.2 pg/mL LinkLog 0.0 - 125.0 08/26 hemoglobin A1C, blood, as % of total hemoglobin 5.5 % LinkLog Normal 08/26 international normalized ratio (INR) 0.96 RATIO [facility] 0.81-1.21 Normal 08/26 prothrombin time (patient) 13.2 s LinkLog 11.5-15.5 Normal 08/26 activated partial thromboplastin time (aPTT) 24.7 s LinkLog Normal 08/26 basophils, absolute, manual 0.06 K/UL [facility] 0.0-0.1 Normal 08/26 basophils as percent of blood leukocytes 0.9 % [facility] 0.3-0.9 Normal 08/26 eosinophils, absolute, manual 0.34 K/UL [facility] 0.1-0.5 Normal 08/26 eosinophils as percent of blood leukocytes 5.0 % [facility] 1.1-7.6 Normal 08/26 monocyte count, blood 0.48 10*3/mm3 [facility] 0.2-0.7 Normal 08/26 monocytes as percent of blood leukocytes 7.2 % [facility] 4.2-11.2 Normal 08/26 lymphocytes as percent of blood leukocytes 1.66 K/UL [facility] 0.6-3.4 Normal 08/26 lymphocytes, absolute 24.8 % [facility] 19.8-46.2 Normal 08/26 neutrophil count, absolute 4.17 K/uL [facility] 1.9-5.9 Normal 08/26 neutrophils as percent of blood leukocytes 62.1 % [facility] 42.7-72.4 Normal 08/26 mean platelet volume 9.3 % [facility] 7.4-9.9 Normal 08/26 red blood cell distribution width 13.2 % [facility] 10.9-14.6 Normal 08/26 platelet count 255 10*3/mm3 [facility] 165-429 Normal 08/26 mean corpuscular hemoglobin concentration, RBC 34.3 % [facility] 32.5-34.5 Normal 08/26 mean corpuscular hemoglobin, RBC 27.7 pg [facility] 21.5-33.3 Normal 08/26 mean corpuscular volume, RBC 81 fL [facility] 76-98 Normal 08/26 hematocrit, blood 44.7 % LinkLog 34.4-47.3 Normal 08/26 hemoglobin, blood 15.3 g/dL LinkLog 12.5-17.2 Normal 08/26 erythrocyte (RBC) count 5.54 M/UL [facility] 3.8-5.5 High 08/26 leukocyte count, blood 6.7 10*3/mm3 [facility] 3.7-8.9 Normal 08/26 LDL/HDL (low-density lipoprotein/high-d ensity lipoprotein) ratio 3.3 RATIO [facility] 0.2-4.3 Normal 08/26 VLDL cholesterol 27 mg/dL [facility] 8-41 Normal 08/26 lipoprotein, beta, serum, point, quantitative, calculated 126 mg/dL [facility] 0-130 Normal 08/26 cholesterol/HDL ratio, serum, percent 5.0 ratio LinkLog 1.5-5.6 Normal 08/26 HDL cholesterol, serum 38 mg/dL [facility] 55 Low 08/26 triglyceride, serum, fasting 136 mg/dL [facility]ic Normal 08/26 cholesterol, serum 191 mg/dL [facility] 0-199 Normal 08/26 bilirubin, serum, total 0.5 mg/dL [facility] 0-1.2 Normal 08/26 alanine aminotransferase (SGPT), serum 56 1/L [facility] 0-41 High 08/26 aspartate aminotransferase (SGOT), serum 38 1/L [facility] 0-40 Normal 08/26 alkaline phosphatase, serum 77 1/L Link[facility] 40-129 Normal 08/26 albumin/globulin ratio, serum 1.7 ratio [facility] 1.0-2.6 Normal 08/26 globulin, serum 2.7 [facility] 1.6-4.0 Normal 08/26 albumin, serum 4.5 g/dL [facility] 3.97-4.94 Normal 08/26 protein, total, serum 7.2 g/dL [facility] 6.6-8.7 Normal 08/26 calcium, serum 10.3 mg/dL [facility] 8.6-10.0 High 08/26 blood glucose, random 102 mg/dL [facility] 74-109 Normal 08/26 eGFR if 114 mL/min/{1.7 3_m2} [facility] >60 Normal 08/26 eGFR if not 94 mL/min/{1.7 3_m2} Link[facility]ic >60 Normal 08/26 urea nitrogen/creatinin e ratio, serum 12.2 ratio [facility] 8.0-25.0 Normal 08/26 creatinine, serum 0.9 mg/dL [facility] 0.70-1.20 Normal 08/26 urea nitrogen, blood 11 mg/dL [facility] 6-20 Normal 08/26 carbon dioxide, venous blood 24 mmol/L [facility] 22-29 Normal 08/26 chloride, serum 101 MEQ/L [facility] 98-107 Normal 08/26 potassium, serum 4.3 MEQ/L [facility] 3.5-5.1 Normal 08/26 sodium, serum 139 MEQ/L [facility] 136-145 Normal HISTORY OF MEDICATION USE Medication Status Instructions Dates Provider Indications Com lilys Zepbound 10 mg/0.5 mL pen injector active INJECT THE CONTENTS OF 1 PEN UNDER THE SKIN ONCE A WEEK FOR 4 WEEKS Fabienne Oneill RN Zepbound 7.5 mg/0.5 mL pen injector completed Inject 1 pen injector subcutaneously once a week for 4 weeks - Christal Calvin SureClick 140 mg/mL pen injector active INJECT 1 PEN UNDER THE SKIN ONCE EVERY 2 WEEKS Catalina Duffy atenolol 50 mg tablet active Take 1 tablet by mouth once a day Birgit Hwang losartan 25 mg tablet active Donovan Stafford MD Zepbound 5 mg/0.5 mL pen injector completed Inject 1 pen injector subcutaneously once a week - Birgit Hwang amlodipine 5 mg tablet completed TAKE 1 TABLET BY MOUTH EVERY DAY - Donovan Stafford MD icosapent ethyl 1 gram capsule active TAKE 2 CAPSULES BY MOUTH TWICE A DAY Birgit Hwang Jardiance 10 mg tablet active TAKE 1 TABLET BY MOUTH EVERY DAY Catalina Duffy ferrous sulfate 325 mg (65 mg iron) tablet active Donovan Stafford MD Vascepa 1 gram capsule completed TAKE 2 CAPSULES BY MOUTH TWICE DAILY - Jess Martin atenolol 50 mg tablet completed Take 1 tablet by mouth once a day TAKE 1 TABLET BY MOUTH EVERY DAY - Birgit Calvin SureClick 140 mg/mL pen injector completed Inject 1 pen injector subcutaneously once every two weeks - Catalina FOWLER Praluent Pen 150 mg/mL pen injector completed INJECT 1 PEN INTO THE SKIN ONCE EVERY 2 WEEKS - Ирина Price RN Jardiance 10 mg tablet completed Take 1 tablet by mouth once a day - Lola Vasquez atenolol 50 mg tablet completed TAKE 1 TABLET BY MOUTH EVERY DAY - Dayanara Hilliard Praluent Pen 150 mg/mL pen injector completed 1 pen injector subcutaneously once every two weeks - Eitan Calvin SureClick 140 mg/mL pen injector completed Inject 1 pen injector subcutaneously every two weeks - Ирина Price RN omeprazole 20 mg tablet,delayed release (DR/EC) active 1 tablet by mouth once a day Siria Shahid'Blas Fish Oil 300-1,000 mg capsule completed 1 tablet by mouth once a day - Donovan Stafford MD Praluent Pen 150 mg/mL pen injector completed Inject 1 pen injector subcutaneously once every two weeks - Ирина Price RN CAD Allergy Relief (fexofenadine) 180 mg tablet active tablet by mouth Donovan Stafford MD Acid Law Professor (omeprazole) 20 mg capsule,delaye d release(DR/EC) completed - Donovan Stafford MD fluticasone propionate 50 mcg/actuation spray,suspensi on active Use 2 spray into both nostrils once a day Donovan Stafford MD #48, 90 days supply, Prescribed by LEONARDO CHAMPION, Filled 10/06/2019 REPATHA SURECLICK 140 MG/ML SUBCUTANEOUS SOLUTION AUTO-INJECTOR completed INJECT 140MG SUBCUTANEOUSLY EVERY 2 WEEKS - Donovan Stafford MD #2, 28 days supply, Prescribed by DONOVAN STAFFORD, Filled 11/16/2019 PRALUENT 150 MG/ML SUBCUTANEOUS SOLUTION PEN-INJECTOR completed Inject subcutaneously every 2 weeks - Donovan Stafford MD REPATHA AUTO-INJ SURECLICK 140MG/ML completed INJECT 140MG SUBCUTANEOUSLY EVERY 2 WEEKS - Donovan Stafford MD PRALUENT 75 MG/ML SUBCUTANEOUS SOLUTION PEN-INJECTOR completed EVERY 14 DAYS - Caty Gabe ALEVE CAPSULE completed as needed - Donovan Stafford MD Vitamin B-12 1,000 mcg tablet completed 1 tablet by mouth once a day - Donovan Stafford MD VITAMIN D3 5000 UNIT ORAL TABLET completed one a day - Donovan Stafford MD NIACIN FLUSH FREE CAPSULE completed one a day - Donovan Stafford MD ARTHRITIS PAIN RELIEF 650 MG ORAL TABLET EXTENDED RELEASE completed as needed - Wily Talamantes FLONASE 50 MCG/ACT NASAL SUSPENSION completed 2 sprays each nostral - Donovan Stafford MD aspirin 81 mg tablet,delayed release (DR/EC) active 1 tablet by mouth once a day Donovan Stafford MD ZETIA 10 MG ORAL TABLET completed 1 daily - Donovan Stafford MD PROAIR HFA 108 (90 Base) MCG/ACT INHALATION AEROSOL SOLUTION completed as needed - Birgit Hwang atenolol 50 mg tablet completed Take 1 tablet by mouth once a day - Wily Talamantes FEXOFENADINE HCL 180 MG ORAL TABLET completed 1 victorino y - Donovan Stafford MD SOCIAL HISTORY Date Observation Value Provider drug use no Donovan Gaming alcohol use, average drinks per day social Donovan Stafford MD alcohol use yes Donovan Gaming passive cigarette sm maksim exposure no Donovan Stafford MD smoking, year quit 2010 Donovan hammer MD smoking history, tot al pack/day 1 Donovan Stafford MD cigarette use yes Donovan Stafford MD smoking status Former smoker Donovan moore MD drug use no Donovan Gaming alcohol use, average drinks per day social Donovan Stafford MD alcohol use yes Donovan Gaming passive cigarette sm maksim exposure no Donovan Stafford MD smoking, year quit 2010 Donovan hammer MD smoking history, tot al pack/day 1 Donovan Stafford MD cigarette use yes Donovan Stafford MD smoking status Former smoker Donovan moore MD drug use no Hua Yi MD alcohol use, average drinks per day social Hua Yi MD alcohol use yes Hua Yi MD passive cigarette sm maksim exposure no Hua Yi MD smoking, year quit 2010 Hua beasley MD smoking history, tot al pack/day 1 Hua Yi MD cigarette use yes Hua Gaming smoking status Former smoker Hua Yi MD social history E&M Marital Statu s: S moking History: Rodo león is a former smoker. Donovan Stafford MD social history reviewed E&M revi ewed - no changes required Donovan Stafford MD social history E&M Marital Statu s: Smoking History: Rodo león is a former smoker. Donovan Stafford MD social history reviewed E&M revi ewed - no changes required Donovan Stafford MD smoking history, tot al pack/day 1 Silva Young smoking, year quit 2010 Silva [employer] cigarette use yes Silva Van smoking status Former smoker Silva Young caffeine use, averag e drinks per day yes Siria Shahid'Blas passive cigarette sm maksim exposure no Siria O'Blas smoking status Former smoker Siria Key'Xiomy l social history E&M Marital Statu s: Smoking History: Rodo león is a former smoker. Donovan Stafford MD social history reviewed E&M revi ewed - no changes required Donovan Stafford MD caffeine use, averag e drinks per day yes Tonsha Piña passive cigarette sm maksim exposure no Tonsha Piña smoking status Former smoker Tonsha Piña social history E&M Marital Statu s: Smoking History: Rodo león is a former smoker. Donovan Stafford MD social history reviewed E&M revi ewed - no changes required Donovan Stafford MD alcohol use, average drinks per day social Elvia Carrera alcohol use yes Elvia mckeon caffeine use, averag e drinks per day yes Elvia Carrera drug use no Elvia mckeon passive cigarette sm maksim exposure no Elvia Carrera smoking status Former smoker Elvia zuleta social history E&M Marital Statu s: Smoking History: Rodo león is a former smoker. Donovan tSafford MD social history reviewed E&M revi ewed - no changes required Donovan Stafford MD alcohol use, average drinks per day social Wily Talamantes alcohol use yes Wily Madison nson caffeine use, averag e drinks per day yes Wily Talamantes drug use no Wily Madison nson passive cigarette sm maksim exposure no Wily Talamantes smoking status Former smoker Wily Jules social history E&M Marital Statu s: Smoking History: Rodo león is a former smoker. Donovan Stafford MD social history reviewed E&M revi ewed - no changes required Donovan Stafford MD alcohol use, average drinks per day social Wily Fischerenson alcohol use yes Wily Madison nson caffeine use, averag e drinks per day yes Wily Talamantes drug use no Wily Madison nson passive cigarette sm maksim exposure no Wily Talamantes smoking status Former smoker Wily Jules social history reviewed E&M revi ewed - no changes required Donovan Stafford MD social history E&M Marital Statu s: Smoking History: Rodo león is a former smoker. Donovan Stafford MD social history reviewed E&M revi ewed - no changes required Donovan Stafford MD alcohol use, average drinks per day social Wily Fischerenson alcohol use yes Wily mauro caffeine use, averag e drinks per day yes Wily Talamantes drug use no Wily mauro passive cigarette sm maksim exposure no Wily Talamantes smoking status Former smoker Wily Jules alcohol use, average drinks per day social Donovan Stafford MD caffeine use, averag e drinks per day yes Donovan Stafford MD drug use no Donovan Gaming smoking/tobacco cess ation, patient education and counseling yes Donovan Stafford MD passive cigarette sm maksim exposure no Donovan Stafford MD smoking status Former smoker Donovan moore MD social history E&M Marital Statu s: Smoking History: Rodo león is a former smoker. Donovan Stafford MD social history reviewed E&M revi ewed - no changes required Donovan Stafford MD alcohol use yes Donovan Gaming smoking status Former smoker Vonda Maynar d social history reviewed E&M sunday ewed - no changes required Donovan Stafford MD smoking/tobacco cess ation, patient education and counseling yes Donovan Stafford MD smoking status Former smoker Eva Ted nesbitt smoking status quit Vonda Hernandez social history reviewed E&M reviewed Donovan Stafford MD quit smoking, stage quit Donovan sorenson MD drug use no Reza Headley RN passive cigarette sm maksim exposure no Reza Headley RN smoking, year quit 2009 Reza fajardo RN social history E&M Marital Status: Marrie d Reza Headley RN caffeine use, averag e drinks per day yes Reza Headley RN alcohol use, average drinks per day social Reza Headley RN smoking status former smoker Reza Barker social history reviewed E&M reviewed Reza Headley RN FUNCTIONAL STATUS Date Observation Value Provider HRA, CV Assess/Plan, Angina (inactive) Management Plan continue current therapy Donovan Stafford MD HRA, CV Assess/Plan, Angina (inactive) Management Plan continue current therapy Donovan Stafford MD HRA, CV Assess/Plan, Angina (inactive) Management Plan continue current therapy Hua Yi MD HRA, CV Assess/Plan, Angina (inactive) Management Plan continue current therapy Donovan Stafford MD HRA, CV Assess/Plan, Angina (inactive) Management Plan continue current therapy Donovan Stafford MD HRA, CV Assess/Plan, Angina (inactive) Management Plan continue current therapy Lola Mathews NP HRA, CV Assess/Plan, Angina (inactive) Management Plan continue current therapy Donovan Stafford MD HRA, CV Assess/Plan, Angina (inactive) Management Plan continue current therapy Donovan Stafford MD HRA, CV Assess/Plan, Angina (inactive) Management Plan continue current therapy Donovan Stafford MD HRA, CV Assess/Plan, Angina (inactive) Management Plan continue current therapy Donovan Stafford MD periodic limb movement index absent (0) Vonda Hernandez MENTAL STATUS Date Observation Value Provider assessment of judgme nt and insight E&M Alert and oriented to time, place and person. Mood and affect are normal. Donovan Stafford MD assessment of judgme nt and insight E&M Alert and oriented to time, place and person. Mood and affect are normal. Reza Headley RN FAMILY HISTORY Family Member Condition Father CT male <55 Father Family History of Co ronary Artery Disease: INSURANCE PROVIDERS Payer name Policy type / Coverage type [place] red democrat ID [employer]\[facility] [employer] 10 [id number] [facility] [employer] 9 [id number] ADVANCE DIRECTIVES Name Date DISCUSSED - NO DECISION MADE TREATMENT PLAN Date Name Performer [id number],C,LVEPD 35, NEG PRO Donovan Stafford MD [id number],S,35 Donovan morrison MD [id number],S, l vedp 35, nml ef lvedp 35, nml ef Donovan Stafford MD [id number],S, score 105, neg nuc 14, neg stres 15 and 16, cath no cad nml rhc Donovan Stafford MD [id number],B,u p to doate on colon, due to donation Donovan Stafford MD [id number],W,5.8 Donovan hammer MD [id number],C, n eg pft n eg d n eg uacr Donovan Stafford MD [id number],S, Donovan moore MD [id number],B, Donovan moore MD [id number],S, Donovan moore MD [id number],S, score 105, neg nuc 14, neg stres 15 and 16, cath no cad nml rhc Donovan Stafford MD [id number],S, T he patient is between 55-77 years old and has smoked at least 30 pack years. The patient is either a current smoker or has quit within the past 15 years. T he patient is recommended to have low dose CT scan for lung cancer screening. Has been counseled regarding the importance of tobacco cessation and abstinence. Shared decision making during this office visit included discussion of the benefits and harms of screening, possible future recommendations of follow-up diagnostic testing, and total amount of radiation exposure. The patient was recommended to have annual low dose CT scan for lung cancer screening and is willing to undergo diagnosis and treatment. Donovan Stafford MD [id number],S, n et us and hepo screen Donovan Stafford MD [id number],S, Donovan moore MD [id number],S,doeas not nicolette n rx or sleave Donovan Stafford MD [id number],S,per others Rivera rashida Stafford MD [id number],S, score 105, neg nuc 14, neg stres 15 and 16, cath no cad nml rhc Donovan Stafford MD [id number],S, n eg pft n eg d Donovan Stafford MD [id number],S, Donovan moore MD [id number],S, n et us and hepo screen Donovan Stafford MD [id number],S, T he patient is using CPAP on a regular basis. The patient has been benefiting from therapy and should continue use. Donovan Stafford MD [id number],S, T he patient is between 55-77 years old and has smoked at least 30 pack years. The patient is either a current smoker or has quit within the past 15 years. T he patient is recommended to have low dose CT scan for lung cancer screening. Has been counseled regarding the importance of tobacco cessation and abstinence. Shared decision making during this office visit included discussion of the benefits and harms of screening, possible future recommendations of follow-up diagnostic testing, and total amount of radiation exposure. The patient was recommended to have annual low dose CT scan for lung cancer screening and is willing to undergo diagnosis and treatment. Donovan Stafford MD [id number],S,5.7 Donovan hammer MD [id number],S, l vedp 35, nml ef Donovan Stafford MD [id number],C,lvedp 35, nml ef Donovan Stafford MD [id number],C,5.7 Donovan hammer MD [id number],S, Donovan moore MD [id number],S, T he patient is between 55-77 years old and has smoked at least 30 pack years. The patient is either a current smoker or has quit within the past 15 years. T he patient is recommended to have low dose CT scan for lung cancer screening. Has been counseled regarding the importance of tobacco cessation and abstinence. Shared decision making during this office visit included discussion of the benefits and harms of screening, possible future recommendations of follow-up diagnostic testing, and total amount of radiation exposure. The patient was recommended to have annual low dose CT scan for lung cancer screening and is willing to undergo diagnosis and treatment. Donovan Stafford MD [id number],S, Lola Herrera shannan DESILVERIZER [id number],S, Lola Herrera shannan DESILVERIZER [id number],C,check lipid p jamal Lola Mathews TRAVIS [id number],S,lvedp 35 Estuardo Mathews TRAVIS [id number],S, Lola Herrera shannan DESILVERIZER [id number],C,T he patient is using CPAP on a regular basis. The patient has been benefiting from therapy and should continue use. Lola Reid ROBLES Cardiology:score 105 , neg nud 14, neg stress 26 and 16, cath no cad, nml rhc Donovan Stafford MD Cardiology: n eg egfr n eg pft n eg d m neg p sa n eg uacr Donovan Stafford MD Cardiology:5.9 Donovan Stafford MD Cardiology: p er others Donovan Stafford MD Cardiology:neg pap Donovan Stafford MD Cardiology: 3 .1 Donovan Stafford MD Cardiology:negpft Donovan Stafford MD Cardiology Donovan Stafford MD Cardiology: u p to doate on colon, due to donation Donovan Stafford MD Cardiology Donovan Stafford MD Cardiology: H is updated medication list for this problem includes: Atenolol 50 Mg Tablet (Atenolol) ..... Take 1 tablet by mouth once a day Losartan 25 Mg Tablet (Losartan) Aspirin 81 Mg Tablet,delayed Release (dr/ec) (Aspirin) ..... 1 tablet by mouth once a day Donovan Stafford MD Cardiology: l vedp 35, neg pro ef 60 Donovan Stafford MD Cardiology: T he patient is between 55-77 years old and has smoked at least 30 pack years. The patient is either a current smoker or has quit within the past 15 years. T he patient is recommended to have low dose CT scan for lung cancer screening. Has been counseled regarding the importance of tobacco cessation and abstinence. Shared decision making during this office visit included discussion of the benefits and harms of screening, possible future recommendations of follow-up diagnostic testing, and total amount of radiation exposure. The patient was recommended to have annual low dose CT scan for lung cancer screening and is willing to undergo diagnosis and treatment. Donovan Stafford MD :lvedp 35, neg pro ef 60 Donovan Stafford MD :3.1 Donovan Stafford MD Cardiology Donovan Stafford MD Cardiology Donovan Stafford MD Cardiology Donovan Stafford MD Cardiology:rx stopped got to ohi gh Donovan Stafford MD Cardiology:neg egfr n eg pft n eg d n eg uacr Donovan Stafford MD Cardiology: H is updated medication list for this problem includes: Icosapent Ethyl 1 Gram Capsule (Icosapent ethyl) ..... Take 2 capsules by mouth twice a day Repatha Sureclick 140 Mg/ml Pen Injector (Evolocumab) ..... Inject 1 pen injector subcutaneously once every two weeks C HOL: 85 (01/10/2021) LDL: 28 MG/DL (CALC) (01/10/2021) HDL: 34 (01/10/2021) T (01/10/2021) C RP: 1.9 mg/L (12/25/2022) Donovan Stafford MD Cardiology: 5 .8 Donovan Stafford MD Cardiology: u p to doate on colon, due to donation Donovan Stafford MD Cardiology: T he patient is using CPAP on a regular basis. The patient has been benefiting from therapy and should continue use. Donovan Stafford MD Cardiology: L VEPD 35, NEG PRO Donovan Stafford MD Cardiology: H is updated medication list for this problem includes: Icosapent Ethyl 1 Gram Capsule (Icosapent ethyl) ..... Take 2 capsules by mouth twice a day Repatha Sureclick 140 Mg/ml Pen Injector (Evolocumab) ..... Inject 1 pen injector subcutaneously once every two weeks C HOL: 85 (01/10/2021) LDL: 28 MG/DL (CALC) (01/10/2021) HDL: 34 (01/10/2021) T (01/10/2021) C RP: 1.9 mg/L (12/25/2022) Donovan Stafford MD Cardiology: T he patient is between 55-77 years old and has smoked at least 30 pack years. The patient is either a current smoker or has quit within the past 15 years. T he patient is recommended to have low dose CT scan for lung cancer screening. Has been counseled regarding the importance of tobacco cessation and abstinence. Shared decision making during this office visit included discussion of the benefits and harms of screening, possible future recommendations of follow-up diagnostic testing, and total amount of radiation exposure. The patient was recommended to have annual low dose CT scan for lung cancer screening and is willing to undergo diagnosis and treatment. Donovan Stafford MD Cardiology: H is updated medication list for this problem includes: Icosapent Ethyl 1 Gram Capsule (Icosapent ethyl) ..... Take 2 capsules by mouth twice a day Repatha Sureclick 140 Mg/ml Pen Injector (Evolocumab) ..... Inject 1 pen injector subcutaneously once every two weeks C HOL: 85 (01/10/2021) LDL: 28 MG/DL (CALC) (01/10/2021) HDL: 34 (01/10/2021) T (01/10/2021) C RP: 1.9 mg/L (12/25/2022) Hua Yi MD Cardiology:The patie nt is using CPAP on a regular basis. The patient has been benefiting from therapy and should continue use. Hua Yi MD Cardiology:continue statin and asa H is updated medication list for this problem includes: Amlodipine 5 Mg Tablet (Amlodipine) ..... Take 1 tablet by mouth every day Atenolol 50 Mg Tablet (Atenolol) ..... Take 1 tablet by mouth once a day take 1 tablet by mouth every day Aspirin 81 Mg Tablet,delayed Release (dr/ec) (Aspirin) ..... 1 tablet by mouth once a day Hua Yi MD Cardiology: H is updated medication list for this problem includes: Icosapent Ethyl 1 Gram Capsule (Icosapent ethyl) ..... Take 2 capsules by mouth twice a day Repatha Sureclick 140 Mg/ml Pen Injector (Evolocumab) ..... Inject 1 pen injector subcutaneously once every two weeks Hua Yi MD Cardiology:Elevated diastolic pressures, add amlodipine 5mg once daily His updated medication list for this problem includes: Atenolol 50 Mg Tablet (Atenolol) ..... Take 1 tablet by mouth once a day take 1 tablet by mouth every day Aspirin 81 Mg Tablet,delayed Release (dr/ec) (Aspirin) ..... 1 tablet by mouth once a day BP today: 150/86 P rior BP: 134/79 (12/18/2022) Prior 10 Yr Risk Heart Disease: 11 % (10/12/2014) Labs Reviewed: C reat: 1.11 (12/25/2022) C hol: 85 (01/10/2021) HDL: 34 (01/10/2021) LDL: 28 MG/DL (CALC) (01/10/2021) T (01/10/2021) Hua Yi MD :LVEPD 35, NEG PRO Donovan Stafford MD Cardiology:35 Donovan Stafford MD Cardiology: l vedp 35, nml ef lvedp 35, nml ef Donovan Stafford MD Cardiology: score 105, neg nuc 14, neg stres 15 and 16, cath no cad nml rhc Donovan Stafford MD Cardiology:up to doate on colon, due to donation Donovan Stafford MD Cardiology:5.8 Donovan Stafford MD Cardiology: n eg pft n eg d n eg uacr Donovan Stafford MD Cardiology Donovan Stafford MD Cardiology Donovan Stafford MD Cardiology Donovan Stafford MD Cardiology: score 105, neg nuc 14, neg stres 15 and 16, cath no cad nml rhc Donovan Stafford MD Cardiology: T he patient is between 55-77 years old and has smoked at least 30 pack years. The patient is either a current smoker or has quit within the past 15 years. T he patient is recommended to have low dose CT scan for lung cancer screening. Has been counseled regarding the importance of tobacco cessation and abstinence. Shared decision making during this office visit included discussion of the benefits and harms of screening, possible future recommendations of follow-up diagnostic testing, and total amount of radiation exposure. The patient was recommended to have annual low dose CT scan for lung cancer screening and is willing to undergo diagnosis and treatment. Donovan Stafford MD Cardiology: n et us and hepo screen Donovan Stafford MD Cardiology Donovan Stafford MD Cardiology:doeas not watn rx or sleave Donovan Stafford MD Cardiology:per others Donovan morrison MD Cardiology: score 105, neg nuc 14, neg stres 15 and 16, cath no cad nml rhc Donovan Stafford MD Cardiology: n eg pft n eg d Donovan Stafford MD Cardiology Donovan Stafford MD Cardiology: n et us and hepo screen Donovan Stafford MD Cardiology: T he patient is using CPAP on a regular basis. The patient has been benefiting from therapy and should continue use. Donovan Stafford MD Cardiology: T he patient is between 55-77 years old and has smoked at least 30 pack years. The patient is either a current smoker or has quit within the past 15 years. T he patient is recommended to have low dose CT scan for lung cancer screening. Has been counseled regarding the importance of tobacco cessation and abstinence. Shared decision making during this office visit included discussion of the benefits and harms of screening, possible future recommendations of follow-up diagnostic testing, and total amount of radiation exposure. The patient was recommended to have annual low dose CT scan for lung cancer screening and is willing to undergo diagnosis and treatment. Donovan Stafford MD Cardiology:5.7 Donovna Stafford MD Cardiology: l vedp 35, nml ef Donovan Stafford MD :lvedp 35, nml ef Donovan Stafford MD :5.7 Donovan Stafford MD Cardiology Donovan Stafford MD Cardiology: T he patient is between 55-77 years old and has smoked at least 30 pack years. The patient is either a current smoker or has quit within the past 15 years. T he patient is recommended to have low dose CT scan for lung cancer screening. Has been counseled regarding the importance of tobacco cessation and abstinence. Shared decision making during this office visit included discussion of the benefits and harms of screening, possible future recommendations of follow-up diagnostic testing, and total amount of radiation exposure. The patient was recommended to have annual low dose CT scan for lung cancer screening and is willing to undergo diagnosis and treatment. Donovan Stafford MD Cardiology Lola Mathews NP Cardiology Lola Mathews NP Cardiology:check lipid panel Becki Mathews NP Cardiology:lvedp 35 Donovan moore MD Cardiology Lola Mathews NP Cardiology:The patie nt is using CPAP on a regular basis. The patient has been benefiting from therapy and should continue use. Lola Mathews NP :net us and hepo screen Donovan sorenson MD Cardiology: d oes not want diet pill or sleave Donovan Stafford MD Cardiology Donovan Stafford MD Cardiology Donovan Stafford MD Cardiology Donovan Stafford MD Cardiology:had us Donovan Stafford MD Cardiology: n ml pro Donovan Stafford MD Cardiology: n eg a1c n eg pft Donovan Stafford MD Cardiology: T he patient is between 55-77 years old and has smoked at least 30 pack years. The patient is either a current smoker or has quit within the past 15 years. T he patient is recommended to have low dose CT scan for lung cancer screening. Has been counseled regarding the importance of tobacco cessation and abstinence. Shared decision making during this office visit included discussion of the benefits and harms of screening, possible future recommendations of follow-up diagnostic testing, and total amount of radiation exposure. The patient was recommended to have annual low dose CT scan for lung cancer screening and is willing to undergo diagnosis and treatment. Donovan Stafford MD Cardiology Donovan Stafford MD Cardiology: H is updated medication list for this problem includes: Praluent 150 Mg/ml Subcutaneous Solution Pen-injector (Alirocumab) ..... Inject subcutaneously every 2 weeks C HOL: 191 (08/26/2013) HDL: 38 (08/26/2013) T (08/26/2013) Donovan Stafford MD Cardiology follow up : H is updated medication list for this problem includes: Atenolol 50 Mg Oral Tablet (Atenolol) ..... Daily Aspirin Adult Low Dose 81 Mg Oral Tablet Delayed Release (Aspirin) ..... One tab by mouth daily BP today: 120/70 P rior BP: 130/79 (12/17/2017) Prior 10 Yr Risk Heart Disease: 11 % (10/12/2014) Labs Reviewed: C reat: 0.9 (08/26/2013) C hol: 191 (08/26/2013) HDL: 38 (08/26/2013) T (08/26/2013) Donovan Stafford MD Cardiology follow up Donovan solis MD Cardiology follow up : n eg a1c Donovan Stafford MD Cardiology follow up Donovan solis MD Cardiology follow up Donovan solis MD Cardiology follow up Donovan solis MD Cardiology follow up : H is updated medication list for this problem includes: Repatha Sureclick 140 Mg/ml Subcutaneous Solution Auto-injector (Evolocumab) ..... Inject subcutaneously every 2 weeks C HOL: 191 (08/26/2013) HDL: 38 (08/26/2013) T (08/26/2013) Donovan Stafford MD Cardiology follow up : n ml pro Donovan Stafford MD Cardiology follow up : s core 105, nuc neg 14, neg steress 15 and 16, cath no cad, nml rhc and ef 2017 Donovan Stafford MD Cardiology follow up :The patient is between 55-77 years old and has smoked at least 30 pack years. The patient is either a current smoker or has quit within the past 15 years. T he patient is recommended to have low dose CT scan for lung cancer screening. Has been counseled regarding the importance of tobacco cessation and abstinence. Shared decision making during this office visit included discussion of the benefits and harms of screening, possible future recommendations of follow-up diagnostic testing, and total amount of radiation exposure. The patient was recommended to have annual low dose CT scan for lung cancer screening and is willing to undergo diagnosis and treatment. Donovan Stafford MD Cardiology:The patie nt is between 55-77 years old and has smoked at least 30 pack years. The patient is either a current smoker or has quit within the past 15 years. T he patient is recommended to have low dose CT scan for lung cancer screening. Has been counseled regarding the importance of tobacco cessation and abstinence. Shared decision making during this office visit included discussion of the benefits and harms of screening, possible future recommendations of follow-up diagnostic testing, and total amount of radiation exposure. The patient was recommended to have annual low dose CT scan for lung cancer screening and is willing to undergo diagnosis and treatment. Donovan Stafford MD Cardiology: H is updated medication list for this problem includes: Atenolol 50 Mg Oral Tablet (Atenolol) ..... Daily Aspirin Adult Low Dose 81 Mg Oral Tablet Delayed Release (Aspirin) ..... One tab by mouth daily BP today: 130/79 P rior BP: 139/82 (10/21/2017) Prior 10 Yr Risk Heart Disease: 11 % (10/12/2014) Labs Reviewed: C reat: 0.9 (08/26/2013) C hol: 191 (08/26/2013) HDL: 38 (08/26/2013) T (08/26/2013) Donovan Serota Cardiology: d oes not want diet pill or sleave Donovan Serota Cardiology Donovan Serota Cardiology: n ml pro Donovan Serota Cardiology: n eg a1c Donovan Serota Cardiology Donovan Serota Cardiology: n eg pft Donovan Serota Cardiology: g raiza score 105 can give parulent , FAILED MULT STATIN, HAS POS NIKKI SCORE Donovan Serota Cardiology: s core 105, nuc neg 14, neg steress 15 and 16, cath no cad, nml rhc and ef 2017 Donovan Serota Cardiology;[facility] : s core 105, nuc neg 14, neg steress 15 and 16, WILL TRY FOR CATH Donovan Serota Cardiology;[facility] : g raiza score 105 can give parulent , FAILED MULT STATIN, HAS POS NIKKI SCORE Donovan Serota Cardiology;[facility] : n ml pro Donovan Serota Cardiology;[facility] : n eg a1c Donovan Serota Cardiology;[facility] : r eptat ct one year Donovan Serota Cardiology;[facility] : d oes not want diet pill or sleave Donovan Serota Cardiology;[facility] Donovan Sero ta Cardiology;[facility] Donovan Sero ta Cardiology;[facility]:ON RX Harve y Serota Cardiology;[facility] Donovan Sero ta Cardiology;[facility] : n eg pft Donovan Serota :reptat ct one year Donovan Serot a MD :neg pft Donovan Stafford MD :give score 105 can give parulen t Donovan Stafford MD :score 105, nuc neg 14, neg ster ess 15 and 16 Donovan Stafford MD :ok on rx Donovan Stafford MD :neg a1c Donovan Stafford MD Cardiology: H is updated medication list for this problem includes: Atenolol 50 Mg Oral Tablet (Atenolol) ..... Daily Aspirin Adult Low Dose 81 Mg Oral Tablet Delayed Release (Aspirin) ..... One tab by mouth daily BP today: 118/74 P rior BP: 120/79 (10/02/2016) Prior 10 Yr Risk Heart Disease: 11 % (10/12/2014) Labs Reviewed: C reat: 0.9 (08/26/2013) C hol: 191 (08/26/2013) HDL: 38 (08/26/2013) T (08/26/2013) Donovan Stafford MD Cardiology: d oes not want diet pill or sleave Donovan Stafford MD Cardiology:nml pro Donovan Stafford MD Cardiology Donovan Stafford MD Cardiology:nml pft Donovan Stafford MD Cardiology:The patie nt is between 55-77 years old and has smoked at least 30 pack years. The patient is either a current smoker or has quit within the past 15 years. T he patient is recommended to have low dose CT scan for lung cancer screening. Has been counseled regarding the importance of tobacco cessation and abstinence. Shared decision making during this office visit included discussion of the benefits and harms of screening, possible future recommendations of follow-up diagnostic testing, and total amount of radiation exposure. The patient was recommended to have annual low dose CT scan for lung cancer screening and is willing to undergo diagnosis and treatment. Donovan Stafford MD Cardiology: H is updated medication list for this problem includes: Atenolol 50 Mg Tabs (Atenolol) ..... Daily Aspirin Adult Low Dose 81 Mg Oral Tbec (Aspirin) ..... One tab by mouth daily BP today: 120/79 P rior BP: 122/92 (12/07/2015) Prior 10 Yr Risk Heart Disease: 11 % (10/12/2014) Labs Reviewed: C reat: 0.9 (08/26/2013) C hol: 191 (08/26/2013) HDL: 38 (08/26/2013) T (08/26/2013) Donovan Stafford MD Cardiology Donovan Stafford MD Cardiology Donovan Stafford MD Cardiology:does not want diet pi ll Donovan Stafford MD Cardiology Donovan Stafford MD Cardiology:nml pro w ma but neg nuc 14, neg stress 15 and 16, nml a1c Donovan Stafford MD Cardiology:not enough sx to rx H nick Stafford MD :script called in Donovan Stafford MD Cardiology Follow up :many sx wi ll hale Donovan Stafford MD Cardiology Follow up : T he following medications were removed from the medication list: Proair Hfa 108 (90 Base) Mcg/act Aers (Albuterol sulfate) ..... As needed Donovan Stafford MD Cardiology Follow up : H is updated medication list for this problem includes: Atenolol 50 Mg Tabs (Atenolol) ..... 1/2 a day Aspirin 81 Mg Tabs (Aspirin) ..... One tab. daily BP today: 122/92 P rior BP: 132/80 (10/18/2015) Prior 10 Yr Risk Heart Disease: 11 % (10/12/2014) Labs Reviewed: C reat: 0.9 (08/26/2013) C hol: 191 (08/26/2013) HDL: 38 (08/26/2013) LDL: 126 (08/26/2013) T (08/26/2013) Donovan Stafford MD Cardiology Follow up :1. Normal left ventricular systolic function. Normal left ventricular size. Normal left ventricular wall t hickness. There is E to A wave reversal consistent with impaired LV relaxation. Normal E/E` 6.5. Left v entricular ejection fraction is estimated at 55 %. 2 . There is mild enlargement of the left atrium. 3 . No significant valvular abnormalities. Donovan Stafford MD Cardiology Follow up :wma but neg nuc 14, neg stress 15 and 16, nml a1c Donovan Stafford MD follow up Donovan Stafford MD follow up Donovan Stafford MD follow up: H is updated medication list for this problem includes: Atenolol 50 Mg Tabs (Atenolol) ..... 1/2 a day Aspirin 81 Mg Tabs (Aspirin) ..... One tab. daily Donovan Stafford MD : H is updated medication list for this problem includes: Atenolol 50 Mg Tabs (Atenolol) ..... 1 daily Aspirin 81 Mg Tabs (Aspirin) ..... One tab. daily Orders: C omplete Echo (CPT-50304) S TR - Routine (CPT-09892) Donovan Stafford MD : O rders: C omplete Echo (CPT-90350) S TR - Routine (CPT-34265) Donovan Stafford MD : O rders: C omplete Echo (CPT-14123) S TR - Routine (CPT-02374) Donovan Stafford MD : O rders: C omplete Echo (CPT-36660) S TR - Routine (CPT-77208) Donovan Stafford MD : O rders: C omplete Echo (CPT-12722) S TR - Routine (CPT-99585) Donovan Stafford MD : O rders: C omplete Echo (CPT-77792) S TR - Routine (CPT-81485) Donovan Stafford MD : H is updated medication list for this problem includes: Zetia 10 Mg Tabs (Ezetimibe) ..... 1 daily Orders: C omplete Echo (CPT-83553) S TR - Routine (CPT-28268) Donovan Stafford MD : H is updated medication list for this problem includes: Proair Hfa 108 (90 Base) Mcg/act Aers (Albuterol sulfate) ..... As needed Orders: C omplete Echo (CPT-46720) S TR - Routine (CPT-55521) Donovan Stafford MD new pt : O rders: F ull PFT (*) X -Ray, Chest, PA & Lateral (CPT-59585) S TR - Adenosine (84620) C omplete Echo (CPT-88848) Donovan Stafford MD new pt : H is updated medication list for this problem includes: Proair Hfa 108 (90 Base) Mcg/act Aers (Albuterol sulfate) ..... As needed Orders: F ull PFT (*) X -Ray, Chest, PA & Lateral (CPT-51407) S TR - Adenosine (18950) C omplete Echo (CPT-76654) Donovan Stafford MD new pt : O rders: S TR - Adenosine (80726) C omplete Echo (CPT-21441) Donovan Staffodr MD new pt : H is updated medication list for this problem includes: Zetia 10 Mg Tabs (Ezetimibe) ..... 1 daily BP today: 129/79 Prior BP: / () Orders: F ull PFT (*) X -Ray, Chest, PA & Lateral (CPT-54005) S TR - Adenosine (28150) C omplete Echo (CPT-37153) Donovan Stafford MD new pt : H is updated medication list for this problem includes: Atenolol 50 Mg Tabs (Atenolol) ..... 1 daily Aspirin 81 Mg Tabs (Aspirin) ..... One tab. daily BP today: 129/79 O rders: F ull PFT (*) X -Ray, Chest, PA & Lateral (CPT-29149) S TR - Adenosine (72063) C omplete Echo (CPT-49865) Donovan Stafford MD new pt : H is updated medication list for this problem includes: Atenolol 50 Mg Tabs (Atenolol) ..... 1 daily Aspirin 81 Mg Tabs (Aspirin) ..... One tab. daily BP today: 129/79 Prior BP: / () Orders: E KG (CPT-61002) Donovan Stafford MD Date Name Aorta Duplex Ultraso und Low Dose Lung CT TSH, free T4, total T3 Renal Artery Duplex Complete Echo DLCO - 66578 FRC - 69334 FVC - [address] Complete Echo PROBNP, N TERMINAL BASIC METABOLIC PANE L W/EGFR CRP, high sensitivit y Lipoprotein (a) Low Dose Lung CT RPM (remote patient monitoring) LIPID PANEL Complete Echo Low Dose Lung CT Complete Echo RPM (remote patient monitoring) Complete Echo Low Dose Lung CT LIPID PANEL Sleep Study Home Vitamin D, 25-Hydrox y COMPREHENSIVE METABO LIC PANEL, W/EGFR HEPATITIS PANEL Covid Antibody Igg Low Dose Lung CT Low Dose Lung CT Low Dose Lung CT Cardiac Cath - Left - [facility] Carotid Duplex Bilat eral PROTHROMBIN TIME WIT H INR LIPID PANEL CBC (INCLUDES DIFF/P LT) BASIC METABOLIC PANE L W/EGFR HEMOGLOBIN A1c CT, Coronary Calcium Score Vitamin D, 25-Hydrox y Low Dose Lung CT PROBNP, N TERMINAL VITAMIN D, 25-HYDROX Y, LC/MS/MS DLCO - 90056 FRC - 41960 FVC - 92487 Sleep Study Home DLCO - 36243 FRC - 46734 FVC - 60224 VITAMIN B12 VITAMIN D, 25-HYDROX Y, LC/MS/MS PROBNP, N TERMINAL STR - Routine Complete Echo CBC (H/H, RBC, INDIC ES, WBC, PLT) PARTIAL THROMBOPLAST IN TIME, ACTIVATED PROTHROMBIN TIME WIT H INR VITAMIN D, 25-HYDROX Y, LC/MS/MS HEMOGLOBIN A1c LIPID PANEL COMPREHENSIVE METABO LIC PANEL W/EGFR Complete Echo STR - Adenosine X-Ray, Chest, PA & L ateral Full PFT HISTORY OF PROCEDURES Procedure Date Procedure Name Provider Procedure Notes S tatus Counseling LDCT Donovan Stafford MD nov com pleted Spirometry Donovan Stafford MD complete d FVC / MVV - 66259 Donovan Stafford MD c ompleted SpO2 w/o 6min walk/titration Donovan Stafford MD completed SVC - 11983 Donovan Stafford MD complet ed DLCO - 17165 Donovan Stafford MD comple meri Complex e/m visit add on Donovan Stafford MD completed Counseling LDCT Donovan Stafford MD oct mck com pleted EKG Donovan Stafford MD complete d Counseling LDCT Donovan Stafford MD serpt com pleted EKG Donovan Stafford MD complete d Counseling LDCT Donovan Stafford MD 01/2022 com pleted Counseling LDCT Donovan Stafford MD com pleted EKG Donovan Stafford MD complete d Counseling LDCT Donovan Stafford MD com pleted EKG Donovan Stafford MD complete d Counseling LDCT Donovan Stafford MD com pleted EKG Donovan Stafford MD complete d Counseling LDCT Donovan Stafford MD may com pleted CT- Coronary CA score Donovan Stafford MD completed Counseling LDCT Donovan Stafford MD com pleted EKG Donovan Stafford MD complete d FVC / MVV with bronchodilator - 00901 Donovan Stafford MD completed FRC - 86591 Donovan Stafford MD complet ed SpO2 - 26273 Donovan Stafford MD comple meri DLCO - 30973 Donovan Stafford MD comple meri SNOMED-CT: [id number] Current Medications Documented Donovan Stafford MD completed FVC - 41497 Donovan Stafford MD complet ed FRC - 06188 Donovan Stafford MD complet ed DLCO - 92899 Donovan Stafford MD comple meri EKG Donovan Stafford MD complete d SNOMED-CT: [id number] Current Medications Documented Donovan Stafford MD completed Stress EKG Melissa Dowd MD complet ed DLCO - 52836 Donovan Stafford MD comple meri FRC - 32703 Donovan Stafford MD complet ed FVC - 98632 Donovan Stafford MD complet ed EKG Donovan Stafford MD complete d
--- OUTSIDE RECORDS SUMMARY | 2024-08-02 17:04 | XMS_ITS | Patient Health Summary ---
Author Organization [facility] Address [address] [place] [address] Care Team Providers Care Video Journalist Name Role Phone Robert Gray MD Primary Care Provider [phone] [facility],non-owned Affiliates and Associated Physician Practices is amultiple site organization consisting of ambulatory clinics and hospital sitesin [place], [place], [place] and [place]. This disclosure is being madepursuant to the Care Everywhere program and may not contain all information available regarding this patient. Last updated 18.[facility] Allergies * Hmg-Coa-R Inhibitors(Other) * Semaglutide(Other) -High Criticality Medications * Be aware that medications may not be up to date on this document. Alwaysverify current medications with the patient. * fluticasone propionate (FLONASE) 50 MCG/ACT nasal spray(Started 10/26/2021) [place] 2 (two) sprays into each nostril once daily * atenolol (TENORMIN) 50 MG tablet(Started 09/12/2021) Take 1 (one) tablet by mouth once daily * fexofenadine (RAFAEL) 180 MG tablet every 24 hours * omeprazole EC (PRILOSEC OTC) 20 MG tablet(Started 12/20/2020) * triamcinolone acetonide (KENALOG) 0.5 % cream triamcinolone acetonide 0.5 % topical cream * aspirin EC (Ecotrin) 81 MG tablet Take 1 (one) tablet by mouth once daily * Magnesium 400 MG * Jardiance 10 MG tablet(Started 12/18/2021) Take 1 (one) tablet by mouth once daily * evolocumab (Repatha SureClick) 140 MG/ML auto-injector(Started 09/26/2022) * icosapent ethyl (Vascepa) 1 g capsule(Started 12/18/2022) Vascepa 1 gram capsule * ferrous sulfate 325 (65 FE) MG tablet Take 1 (one) tablet by mouth once daily Active Problems Problem Noted Date Diagnosed Date Pulmonary hypertension 12/18/2022 Iron deficiency 12/18/2022 01/28/2023 Rheumatic tricuspid insufficiency 02/15/2022 01/28/2023 Thyroid nodule 10/30/2021 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 Impotence 10/30/2021 Allergic rhinitis 10/30/2021 Chronic obstructive lung disease 10/30/2021 Eczema 10/30/2021 Essential hypertension 10/30/2021 Elevated LFTs 12/15/2019 Aortic atherosclerosis 10/21/2017 Arteriosclerosis of coronary artery 10/21/2017 Hemorrhoids 05/05/2017 B12 deficiency 12/08/2015 Sleep apnea, unspecified 12/07/2015 Vitamin D deficiency 11/25/2013 Hyperlipidemia 08/26/2013 Obesity 08/26/2013 Other ill-defined heart diseases 08/26/2013 Immunizations * COVID BRITTANY PRIMARY 18+YR(Given 08/11/2021) * Covid Pfizer primary monovalent 12+ yr 0.3mL Purple cap(Given 10/05/2021, 04/09/2021) Social History Tobacco Use Types Packs/Day Years [...] Mass Index 34.95 01/28/2023 11:42 AM CDT Procedures * TSH(Performed 11/26/2023) Performed for Thyroid nodule, Katharine's thyroiditis * MA US SOFT TISS HEAD&NCK R-T IMG(Performed 01/28/2023) Performed for Thyroid nodule, Katharine's thyroiditis * TSH(Performed 12/14/2022) * MA US SOFT TISS HEAD&NCK R-T IMG(Performed 01/29/2022) Performed for Thyroid nodule, Katharine's thyroiditis * T4 FREE DIRECT DIALYSIS(Performed 11/13/2021) Performed for Thyroid nodule, Katharine's thyroiditis * TSH(Performed 11/13/2021) Performed for Thyroid nodule, Katharine's thyroiditis Results * TSH (11/26/2023 8:14 AM CDT) Only the most recent of3 resultswithin the time period is included. TSH 2.68 0.40 - 4.50 mIU/L [facility] Comment: Test Performed at: [address] [address] CESAR VERDE MD Blood BLOOD SPECIMEN / Unknown 11/26/2023 8:14 AM CDT 11/26/2023 8:15 AM CDT Mack Sue MD LAB - CHEMISTRY ORD ERABLES [address] [address] * MA US SOFT TISS HEAD&NCK R-T IMG (01/28/2023 12:21 PM CDT) Narrative Mack Sue MD - 01/28/2023 12:21 PM CDT Mack Sue MD 01/28/2023 1:12 PM Ultrasound Of Thyroid Ultrasound of the Thyroid Physician Mack Sue MD Fellow None Test Date: 01/28/2023 Test Indication: Patient Active Problem List: Thyroid nodule Katharine's thyroiditis Impotence Allergic rhinitis Aortic atherosclerosis (CMS/HCC) Arteriosclerosis of coronary artery B12 deficiency Chronic obstructive lung disease (CMS/HCC) Eczema Elevated LFTs Essential hypertension Hemorrhoids Hyperlipidemia Obesity Other ill-defined heart diseases Sleep apnea, unspecified Vitamin D deficiency Rheumatic tricuspid insufficiency Pulmonary hypertension (CMS/HCC) Iron deficiency Referring Physician: Dr. Robert Gray MD Procedure Preformed: Ultrasound Only COMPARED TO : 01/29/2022 Nodule Size: LEFT LOBE TRANSVERSE IMAGE : COMPLEX CYST, MID LOBE, POSTERIOR, SMOOTH BORDER, 0.94 X 0.79 CM LONGITUDINAL IMAGE : MEASURED TWO IMAGES : 0.95 X 0.90 CM, 0.98 X 0.86 CM Echogenicity: HOMOGENEOUS ECHO TEXTURE TO BOTH LOBES Vascularity: NOT INCREASED OR ABNORMAL Number of Nodules Present: ONE Calcifications: YES, COARSE, LEFT LOBE , WITH SHADOWING Borders: SHARP RIGHT LOBE TRANSVERSE IMAGE : 2.46 X 1.25 CM LONGITUDINAL IMAGE: 4.39 X 1.66 CM ISTHMUS : 0.25 CM LEFT LOBE TRANSVERSE IMAGE : 2.14 X 1.55 CM LONGITUDINAL IMAGE : 4.41 X 1.53 CM ASSESSMENT NO CHANGE IN LEFT LOBE NODULE EUTHYROID Recommendations: PLAN THYROID ULTRASOUND TODAY LAB IN ONE YEAR FOR TSH AT LEAST ANNUAL TSH DETERMINATION RETURN IN TWO YEARS FOR ULTRASOUND IF TSH GREATER THAN 5 WILL OBTAIN FREE T4 IF TSH LESS THAN 0.1 WILL OBTAIN FREE T4 AND FREE T3 AND TSI Mack Sue MD Division of Endocrinology Mack Sue MD PROCEDURE/MINOR JELLY GICAL ORDERABLES * MA US SOFT TISS HEAD&NCK R-T IMG (01/29/2022 11:58 AM CDT) Narrative Mack Sue MD - 01/29/2022 11:58 AM CDT Mack Sue MD 01/29/2022 12:21 PM Ultrasound Of Thyroid Ultrasound of the Thyroid PHYSICIAN Mack Sue MD FELLOW Nolan RODRIGUEZ Test Date: 01/29/2022 Test Indication: Patient Active Problem List: Thyroid nodule Katharine's thyroiditis Impotence Allergic rhinitis Aortic atherosclerosis Arteriosclerosis of coronary artery B12 deficiency Chronic obstructive lung disease Eczema Elevated LFTs Essential hypertension Hemorrhoids Hyperlipidemia Obesity Other ill-defined heart diseases Sleep apnea, unspecified Vitamin D deficiency Referring Physician: Dr. Robert Gray MD Procedure Preformed: Ultrasound Only Nodule Size: LEFT LOBE TRANSVERSE IMAGE : CYSTIC NODULE WITH MAYBE A SLIGHT RIM OF SOLID TISSUE , ISOECHOIC, SMOOTH BORDER, SPONGIFORM , POSTERIOR, MID TO INFERIOR POLE, 0.96 X 0.82 CM LONGITUDINAL IMAGE ; 0.85 X 0.82 CM Echogenicity: HETEROGENEOUS ECHO TEXTURE TO BOTH LOBES Vascularity: NOT INCREASED OR ABNORMAL Number of Nodules Present: ONE Calcifications: YES, COARSE, LOWER POLE LEFT LOBE, SHADOWING, LINEAR CALCIFICATION Borders: SHARP RIGHT LOBE TRANSVERSE IMAGE : 1.97 X 1.27 CM LONGITUDINAL IMAGE: 4.95 CM ISTHMUS : 0.12 CM (CENTER ); RIGHT 0.17 CM LEFT LOBE TRANSVERSE IMAGE : 2.22 X 1.45 CM LONGITUDINAL IMAGE : 4.14 X 1.47 CM ASSESSMENT THYROID NODULE DOES NOT MEET ANALY CRITERIA FOR FNA BIOPSY ALSO LOOKS MORE LIKE TR2 OR TR 3 ON ACR CRITERIA EUTHYROID KATHARINE'S THYROIDITIS Recommendations: PLAN THYROID ULTRASOUND TODAY AT LEAST ANNUAL TSH DETERMINATION RETURN IN ONE YEAR ULTRASOUND IN ONE YEAR IF NEXT ULTRASOUND THE SAME THEN TWO YEARS FOLLOW UP IS REASONABLE LAB IN ONE YEAR FOR TSH IF TSH GREATER THAN 5 WILL OBTAIN FREE T4 IF TSH LESS THAN 0.1 WILL OBTAIN FREE T4 AND FREE T3 AND TSI STANDING ORDER FOR TSH EVERY SIX MONTHS , IF NEEDED FOR SYMPTOM EVALUATION Mack Sue MD Division of Endocrinology Mack Sue MD PROCEDURE/MINOR JELLY GICAL ORDERABLES * T4 FREE DIRECT DIALYSIS (11/13/2021 7:56 AM CDT) T4 Free Direct 1.2 0.9 - 2.2 ng/dL [facility] Comment: This test was developed and its analytical performance characteristics have been determined by [facility]. It has not been cleared or approved by FDA. This assay has been validated pursuant to the CLIA regulations and is used for clinical purposes. Test Performed at: [facility] [address] [place] [address] GUERLINE ROCHA MD,PHD,MOISES Blood BLOOD SPECIMEN / Unknown 11/13/2021 7:56 AM CDT 11/13/2021 7:57 AM CDT Mack Sue MD LAB - CHEMISTRY ORD ERABLES [facility] [address] [place] [address] Care Teams Video Journalist Relationship Specialty Start Date End Date Robert Grya MD [address] [place] [address] PCP - General 08/08/21
--- OUTSIDE RECORDS SUMMARY | 2024-08-02 17:04 | XMS_ITS | Referral Summary ---
Author Organization [facility] Address [address] [place] [address] Care Team Providers Care Ophthalmic Surgeon Name Role Phone Robert Gray MD Primary Care Provider [phone] Source Comments [facility],non-[facility] Affiliates and Associated Physician Practices is amultiple site organization consisting of ambulatory clinics and hospital sitesin [place], [place], [place] and [place]. This disclosure is being madepursuant to the Care Everywhere program and may not contain all information available regarding this patient. Last updated 18.[facility] [employer] Allergies Active Allergy Reactions Criticality Noted Date Comments Hmg-Coa-R Inhibitors Other 10/30/2021 Semaglutide Other High 12/13/2021 Medications * Be aware that medications may not be up to date on this document. Alwaysverify current medications with the patient. Medication Sig Dispensed Refills Start Date End Date Status fluticasone propionate (FLONASE) 50 MCG/ACT nasal spray [place] 2 (two) sprays into each nostril once [...] ent 12+ yr 0.3mL Purple cap 10/05/2021,04/09/2021 Social History Tobacco Use Types Packs/Day Years [...] 01/28/2023 11:42 AM CDT Plan of Treatment Not on file Care Teams Ophthalmic Surgeon Relationship Specialty Start Date End Date Robert Gray MD [address] [address] [place] [address] PCP - General 08/08/21
== END 2024-08-02 14:41 | disposition home or self-care (01) ==
LOC: ANHLAB 14:41
PROVIDERS: PCP Emergency Medicine; Visit Provider Internal Medicine Hematology & Oncology
DX: D64.9 Anemia, unspecified (principal)
CPT/HCPCS: 36415; 82607; 82728; 82746; 83540; 83550; 85025

== ENCOUNTER 2025-04-19 09:23 | Outpatient (CLI) | payer BC, SELFPAY ==
--- NOTE | ~2025-04-19 | XR_ITS ---
EXAMINATION: XR knee RT min 4V, 04/19/2025 10:03 [employer] TECHNICIAN HISTORY: right knee pain X 4 MONTHS, NKI, PAIN MEDIAL/ ANTERIOR COMPARISON: No comparisons available. Findings: No acute fracture or malalignment. No significant degenerative changes. Soft tissues unremarkable. Impression: No acute fracture or malalignment. Reviewed, dictated and finalized at location [employer] TECHNICIAN Impression: No acute fracture or malalignment.
--- OUTSIDE RECORDS SUMMARY | 2025-04-19 09:55 | XMS_ITS | Clinical Summary ---
Author Organization [facility] Address [address] [place] [address] Care Team Providers Care Physicist Astrophysics Name Role Phone Robert Gray MD Primary Care Provider [phone] Allergies Active Allergy Reactions Criticality Noted Date Comments Semaglutide (Weight Loss) Other (See Comments) 01/20/2023 Sulfur taste Nrzuafr-Cjh-Hwx Reductase Inhibitors Muscle Pain Low 01/20/2023 Medications atenoloL (TENORMIN) 50 mg tablet Take 50 mg by mouth daily. 2 Active fexofenadine (RAFAEL) 180 mg tablet Take 180 mg by mouth daily. Active omeprazole magnesium (PriLOSEC) 20 mg Tablet, Delayed Release (E.C.) Take 20 mg by mouth. 1 Active fluticasone propionate (FLONASE) 50 mcg/spray [place], Suspension nasal inhaler Administer 2 Sprays in each nostril daily. 2 Active evolocumab (Repatha SureClick) 140 mg/mL Pen Injector Apply to affected area one time only. 3 Active empagliflozin (Jardiance) 10 mg tablet Take 10 mg by mouth daily in the morning. Active ferrous sulfate 325 mg (65 mg iron) tablet Take 325 mg by mouth daily. Active aspirin (ECOTRIN EC) 81 mg Tablet, Delayed Release (E.C.) Take 81 mg by mouth daily. Active Zepbound 10 mg/0.5 mL Pen Injector INJECT THE CONTENTS OF 1 PEN UNDER THE SKIN ONCE A WEEK FOR 4 WEEKS Active losartan (COZAAR) 25 mg tablet Take 1 Tablet by mouth daily. 4 Active Active Problems No known active problems Encounters Date Type Department Care Team Description 03/30/2025 External Device Data ST[facility] ABSTRACTION Provider, Abstract 03/30/2025 External Device Data ST[facility] ABSTRACTION Provider, Abstract 03/22/2025 External Device Data STL ABSTRACTION Provider, Abstract 01/25/2025 External Device Data STL ABSTRACTION Provider, Abstract from Last 3 Months Family History Relation [...] Sign Reading Time Taken Comments Blood Pressure 131/87 08/03/2024 3:30 PM BIG DATA ENGINEER Pulse 80 08/03/2024 3:30 PM BIG DATA ENGINEER Temperature 36.7 C (98.1 F) 08/03/2024 3:30 PM BIG DATA ENGINEER Respiratory Rate 15 08/03/2024 3:30 PM BIG DATA ENGINEER Oxygen Saturation 95% 08/03/2024 3:3 0 PM BIG DATA ENGINEER Inhaled Oxygen Concentration - - Weight 110.2 kg (243 lb) 08/03/2024 3:3 0 PM BIG DATA ENGINEER Patient verballt stated that he trying to lose weight Height 185.4 cm (6' 1) 01/20/2023 2:56 PM CDT Body Mass Index 32.06 01/20/2023 2:56 PM CDT Plan of Treatment Health Maintenance Due Date Last Done Comments Pre-Diabetes and Diabetes Screening 1961 DTAP/TDAP/TD VACCINES (1 - Tdap) 1980 COLORECTAL SCREENING 2006 Colorectal Cancer Screening 2006 FIT-DNA Q 3 years 2006 FIT/FOBT Q 1 year 2006 Flex Sig/CT Colonography Q 5 years 2006 RSV VACCINE (60+ or ) (1 - Risk 50-74 years 1-dose series) 2011 ZOSTER VACCINE (1 of 2) 2011 INFLUENZA VACCINE (#1) 2025 Insurance [employer] OPEN ACCESS HMO [facility] [id number] Care Teams Physicist Astrophysics Relationship Specialty Start Date End Date Robert Gray MD [address] [place] [id number] PCP - General Family Practice 07/31/23
--- OUTSIDE RECORDS SUMMARY | 2025-04-19 09:55 | XMS_ITS | Clinical Summary ---
Author Organization [facility] Address [address] [place] [address] Care Team Providers Care Multiple Needle Stitcher Name Role Phone Robert Gray MD Primary Care Provider Source Comments [facility],non-[facility] Affiliates and Associated Physician Practices is amultiple site organization consisting of ambulatory clinics and hospital sitesin [place], [place], [place]. This disclosure is being madepursuant to the Care Everywhere program and may not contain all information available regarding this patient. Last updated 18.[facility] [employer] Allergies Active Allergy Reactions Criticality Noted Date Comments Hmg-Coa-R Inhibitors Other 10/30/2021 Semaglutide Other High 12/13/2021 Medications * Be aware that medications may not be up to date on this document. Alwaysverify current medications with the patient. fluticasone propionate (FLONASE) 50 MCG/ACT nasal spray [place] 2 (two) sprays into each nostril once daily 2 Active atenolol (TENORMIN) 50 MG tablet Take 1 (one) tablet by mouth once daily 2 Active fexofenadine (RAFAEL) 180 MG tablet every 24 hours Activ e omeprazole EC (PRILOSEC OTC) 20 MG tablet 1 Active triamcinolone acetonide (KENALOG) 0.5 % cream triamcinolone acetonide 0.5 % topical cream Active aspirin EC (Ecotrin) 81 MG tablet Take 1 (one) tablet by mouth once daily Active Magnesium 400 MG Active Jardiance 10 MG tablet Take 1 (one) tablet by mouth once daily 2 Active evolocumab (Repatha SureClick) 140 MG/ML auto-injector 3 Active icosapent ethyl (Vascepa) 1 g capsule Vascepa 1 gram capsule 3 Active ferrous sulfate 325 (65 FE) MG tablet Take 1 (one) tablet by mouth once daily Active Active Problems Problem Noted Date Diagnosed Date Pulmonary hypertension 12/18/2022 3 Iron deficiency 12/18/2022 01/28/2023 Rheumatic tricuspid insufficiency [...] 08/26/2013 Other ill-defined heart diseases 08/26/2013 Immunizations Immunization Administration Dates Next Due COVID [facility] [...] at Not on file Legal Sex Male 1:39 PM [employer]OCK [employer] Gender Identity Not on file Sexual Orientation [...] 11:42 AM CDT Height 185.4 cm (6' 1) 01/28/2023 11:4 2 AM CDT Body Mass [...] 50+ (1 of 2 - PCV) 1980 ZOSTER VACCINE (1 of 2) 2011 Respiratory Syncytial Virus (RSV) Vaccine Pt: or over 60 yrs (1 - Risk 60-74 years 1-dose series) 2021 SCREENING FOR DIABETES 10/30/2021 DEPRESSION SCREENING 06/09/2024 COVID-19 VACCINE (4 - 2024-2 6 season) 2025 10/05/2021, 08/11/2021, 04/09/2021 INFLUENZA VACCINE (#1) 2025 HEPATITIS B VACCINE Aged Out No longe r eligible based on patient's age to complete this topic HIB VACCINE Aged Out No longer eligi ble based on patient's age to complete this topic HPV VACCINE Aged Out No longer eligi ble based on patient's age to complete this topic MENINGOCOCCAL (Group B) VACCINE SHARED DECISION-MAKING Aged Out No longer eligible based on patient's age to complete this topic MENINGOCOCCAL GROUPS A/C/Y/W VACCINE Aged Out No longer eligible b ased on patient's age to complete this topic Insurance [facility] Care Teams Multiple Needle Stitcher Relationship Specialty Start Date End Date Robert Gray MD [address] [place] [id number] PCP - General 08/08/21
== END 2025-04-19 09:24 | disposition home or self-care (01) ==
PROVIDERS: PCP Emergency Medicine; Visit Provider Emergency Medicine
DX: M25.561 Pain in right knee (principal)
CPT/HCPCS: 73564